=== PATIENT | male | born 1950 | race Caucasian/White ===

== ENCOUNTER 2018-03-18 11:18 | Day surgery (SDC) | payer MEDICARE, OTHER ==
[2018-03-17 14:07] VITALS: BMI 31.3
--- NOTE | 2018-03-18 13:48 | OP ---
DATE OF PROCEDURE: 03/18/2018 PREOPERATIVE DIAGNOSES: 1. Dysphagia. 2. Chronic diarrhea. 3. History of colon polyps. PROCEDURE: After informed consent was obtained, the patient was placed in the left lateral decubitus position. Anesthesia was administered per the Anesthesia Department. Forward-viewing endoscope was inserted into the esophagus under direct visualization with ease and passed to the second portion of the duodenum with ease. Second portion of the duodenum and duodenal bulb were normal. Random biops ies were taken of the second portion of duodenum. The pylorus, antrum, body, fundus, and cardia were normal except for some diffuse nonerosive gastritis. Biopsies were taken from the gastric antrum an d body. Some nodular mucosa was noted in the body of the stomach. The esophagus showed a narrowing at 40 cm. A 54-Khmer Thrasher dilator was passed. The scope was reinserted and showed some post-dil atation bleeding. ASSESSMENT: 1. Esophageal stricture - status post Thrasher dilatation. 2. Nonerosive gastritis - status post biopsy. 3. Otherwise, normal esophagogastroduodenoscopy. RECOMMENDATIONS: 1. Await histopathology. 2. Repeat EGD and dilatations as needed. 3. Proceed with colonoscopy. PROCEDURE: After informed consent was obtained, the patient placed in the left lateral decubitus pos ition. Anesthesia was administered per the Anesthesia Department. Forward-viewing endoscope was ins erted into the rectum after perianal inspection and rectal exam were normal. It was passed to the ce cum with ease. The cecum, ileocecal valve, and appendiceal orifice were normal. The prep was excell ent. In the cecum, a small 6 mm polyp was seen and removed with a hot snare polypectomy. The remain johnny of the cecum, ascending, transverse, descending, sigmoid, and rectum were normal except for some left-sided diverticulosis coli. Random biopsies were taken from the colon to rule out microscopic co litis. Retroflexion in the rectum was normal. ASSESSMENT: 1. Cecal polyp - status post polypectomy. 2. Left-sided diverticulosis coli. 3. Otherwise, normal colonoscopy. RECOMMENDATIONS: 1. Await histopathology. 2. Repeat colonoscopy based on the polypectomy results. 3. Follow up in my office in 1 week's time.
[2018-03-18] MEDS ORDERED: ePHEDrine/0.9% NaCl/PF SYRINGE 50 mg/10 ml ONE (15:07)
[2018-03-18] MEDS ORDERED: Lidocaine 1% PF 5 ML VIAL ONE (15:07)
[2018-03-18] MEDS ORDERED: PROPOFOL 200 MG/20 ML VIAL ONE (15:07)
[2018-03-18] MEDS ORDERED: PHENYLEPHRINE-NS 100 MCG/ML 10 ML SYRINGE ONE (15:07)
== END 2018-03-18 14:16 | disposition home or self-care (01) ==
LOC: SDC 11:18
PROVIDERS: ATTEND Internal Medicine Gastroenterology
PROC: 0DBH8ZX Excision of Cecum, Via Natural or Artificial Opening Endoscopic, Diagnostic (ICD-10-PCS; principal; 2018-03-18)
PROC: 0DBE8ZX Excision of Large Intestine, Via Natural or Artificial Opening Endoscopic, Diagnostic (ICD-10-PCS; 2018-03-18)
PROC: 0D757ZZ Dilation of Esophagus, Via Natural or Artificial Opening (ICD-10-PCS; 2018-03-18)
PROC: 0DB68ZX Excision of Stomach, Via Natural or Artificial Opening Endoscopic, Diagnostic (ICD-10-PCS; 2018-03-18)
DX: K63.5 Polyp of colon (principal); K22.2 Esophageal obstruction; K29.70 Gastritis, unspecified, without bleeding
CPT/HCPCS: 88305; 88312; J2001; J2704

== ENCOUNTER 2018-04-06 18:18 | Inpatient (IN) | payer MEDICARE ==
[2018-04-06 20:05] LABS: Troponin I 0.129 ng/mL (< 0.028)
[2018-04-06] MEDS ORDERED: Ondansetron HCl/PF 4 MG/2 ML Vial IVP PRN (22:33)
[2018-04-06] MEDS ORDERED: Ondansetron ODT 4 MG TAB SL PRN (22:33)
[2018-04-06] MEDS ORDERED: HYDROcodone/Acetaminophen 5/325 mg Tablet PO PRN (22:33)
[2018-04-06] MEDS ORDERED: Acetaminophen 325 MG TAB PO PRN (22:33)
[2018-04-06 22:44] VITALS: BMI 31.8
[2018-04-06] MEDS ORDERED: Vancomycin HCl 1 GM in Premix Bag 1 BAG IVPB SCH (23:00)
[2018-04-06 23:20] LABS: Troponin I 0.119 ng/mL (< 0.028)
[2018-04-06] MEDS ORDERED: VANCOMYCIN IVPB PRN (23:30)
[2018-04-06] MEDS: Cefepime 1 GM in Sodium Chloride 0.9% 100 ML IVPB SCH (23:32)
[2018-04-07] MEDS: HYDROcodone/Acetaminophen 5/325 mg Tablet PO PRN ×3 (00:49→17:17)
[2018-04-07] MEDS ORDERED: Vancomycin HCl 1.75 GM in Sodium Chloride 0.9% 500 ML IVPB SCH (01:00)
[2018-04-07 05:20] LABS: #Basophils 0.1 thou/uL (0.0-0.2); #Eosinphils 0.5 thou/uL (0.0-0.7); %Basophils 0.5 % (0.0-1.0); %Eosinophils 4.2 % (0.0-10.0); %Lymphocytes 25.7 % (21.0-51.0); %Monocytes 8.9 % (0.0-10.0); %Neutrophils 60.7 % (42.0-75.0); Hemoglobin 12.2 g/dL (14.0-18.0); Mean Corpuscular HGB CONC 33.7 g/dL (32.0-36.0); Mean Corpuscular Hemoglobin 30.1 pg (27.0-31.0); Mean Corpuscular Volume 89.3 fL (78.0-98.0); Mean Platelet Volume 7.2 fL (7.4-10.4); Platelet Count 183 thou/uL (130-400); RBC Distribution Width 14.2 % (11.5-14.5); Red Blood Cell (RBC) Count 4.05 mill/uL (4.70-6.10); White Blood Cell (WBC) Count 11.6 thou/uL (4.8-10.8)
[2018-04-07 05:45] LABS: Anion Gap 15 mmol/L (10-20); BUN (Urea Nitrogen) 17 mg/dL (8.4-25.7); Calc. Creatinine Clearance 69 mL/min (70-130); Calcium 8.6 mg/dL (7.8-10.44); Carbon Dioxide 25 mmol/L (23-31); Chloride 104 mmol/L (98-107); Estimated GFR-MDRD 53; Glucose 119 mg/dL (80-115); Potassium 3.8 mmol/L (3.5-5.1); Sodium 140 mmol/L (136-145)
[2018-04-07] MEDS ORDERED: Atorvastatin Calcium 40 MG TAB PO SCH (09:00)
[2018-04-07] MEDS: PARoxetine 20 MG TAB PO SCH (09:01)
[2018-04-07] MEDS: Furosemide 20 MG TAB PO SCH ×2 (09:02→21:33)
[2018-04-07] MEDS: Carvedilol 25 MG TAB PO SCH ×2 (09:02→20:42)
[2018-04-07] MEDS: Enoxaparin Sodium 40 MG/0.4 ML SYRINGE SC SCH (09:03)
--- NOTE | 2018-04-07 09:40 | HP ---
PRIMARY CARE PHYSICIAN: Dr. Maria Fernanda White. CODE STATUS: FULL CODE. TIME OF EVALUATION: 10:15 p.m. CHIEF COMPLAINT: Shortness of breath. HISTORY OF PRESENT ILLNESS: This is a 67-year-old male patient with past medical history of congesti ve heart failure, status post pacemaker, aortic valve replacement in 2003, came to the hospital after having a severe gradually worsening shortness of breath, limiting his activities of daily living. T his symptom has been present for the past 4 days. No clear triggers, no alleviating factors. Sympto ms do get worse with exertion and are associated with fever. REVIEW OF SYSTEMS: Constitutional: The patient had fever, chills, generalized weakness. Respirator y: Cough, sputum production, shortness of breath. Cardiovascular: No chest pain, palpitation. Gas trointestinal: No nausea, vomiting, diarrhea or abdominal pain. TELEPHONE TRIAGE NURSE: No dizziness, headache or fee ling lightheaded. Genitourinary: No burning with urination. Extremities: No leg swelling. All ot her systems reviewed and negative except for the finding mentioned over. PAST MEDICAL HISTORY: Positive for valvular heart disease, aortic stenosis, hypertension. PAST SURGICAL HISTORY: Aortic valve replacement, pacemaker defibrillator, orthopedic surgery left hi p. PSYCHIATRIC HISTORY: None reported. SOCIAL HISTORY: Former tobacco smoker, quit 6 months ago. No drug use, no alcohol use. DRUG ALLERGIES: No known drug allergies. REPORTED MEDICATIONS: Enalapril, Coreg, furosemide, spironolactone, paroxetine, Lipitor. PHYSICAL EXAMINATION: VITAL SIGNS: On presentation, blood pressure 110/67 with heart rate 80, respiratory rate was 18, tem perature 98.1, oxygen saturation was 98% on room air. GENERAL APPEARANCE: The patient is alert, oriented, no acute distress. HEENT: Eyes, normal conjunctivae. Moist oral mucosa. Anicteric. NECK: No JVD. RESPIRATORY: The patient has bilateral air entry. Patient has rales in the right lower lobe with sc attered rhonchi. No wheezing. Symmetric expansion. CARDIOVASCULAR: Normal rate, regular rhythm. No murmurs, no gallop. No edema. ABDOMEN: Soft, normal bowel sounds. MUSCULOSKELETAL: Baseline range of motion and strength. No tenderness. SKIN: Warm and intact. No pallor, no rash or redness. Peripheral pulses are present. Capillary re fill seems to be intact. NEUROLOGIC: No evidence of any new focal weakness. Baseline sensory. Cranial nerves seem to be int act. PSYCHIATRIC: The patient is in good mood. No anxiety. Oriented. Optimal judgement. EKG was reviewed. The patient had paced rhythm was discussed with performing physician from ER. RADIOLOGY: Chest CT, no pulmonary embolism, mild patchy right anterior and posterior basilar infiltr ates. This was reviewed by radiology. LABORATORY DATA: Reviewed. The patient has a troponin of 0.129, second one 0.119. White count 11, hemoglobin 11.8, MCV 87, platelet count 166. Coagulation: D-dimer 1.18. Chemistry: Sodium 141, po tassium 3.8, chloride 106, anion gap 16, BUN 19, creatinine 1.22, GFR 59, glucose 100, hemoglobin A1c 5.5 that was in December. Lactic acid 2.0. LFTs were normal. Beta-natriurectic peptide 688. ASSESSMENT AND PLAN: The patient will be placed in the hospital with following medical problems. 1. Right lower lobe pneumonia seen on the CAT scan, treated with antibiotics, broad spectrum to cove r possible healthcare-associated pneumonia. The patient was admitted to the hospital recently, and s ymptoms are getting worse very quickly. We will monitor the patient. We will follow up cultures, we will adjust the treatment as needed. 2. Elevated D-dimer of 1.18, secondary to underlying infection. CT angio was done, it was negative for pulmonary embolism. 3. History of congestive heart failure. The patient has improvement after giving Lasix prior to tra nsfer, there may be some component of congestive heart failure in this process, we will reconcile enzo e meds, we will adjust treatment as needed. 4. Controlled hypertension, reconcile home meds, will adjust treatment as needed. 5. Deep venous thrombosis prophylaxis.
[2018-04-07] MEDS ORDERED: Aspirin 325 mg Enteric Coated Tablet PO SCH (10:30)
[2018-04-07] MEDS: Azithromycin 250 MG in Sodium Chloride 0.9% 250 ML 250 ML IVPB SCH (12:32)
--- NOTE | 2018-04-07 12:42 | CON ---
DATE OF CONSULTATION: 04/06/2018 HISTORY OF PRESENT ILLNESS: The patient is a 67-year-old gentleman with a history of coronary artery disease and aortic valve replacement who presents with increasing dyspnea, fever and productive sput um. The patient has a history of aortic valve replacement in 2003. He had placement of bioprostheti c valve. The patient has been followed most recently in [place]. He states that he underwent a cardiac catheterization earlier this year, which revealed [id number] CAD and has been on medical thera py. The patient was in his usual state of health until recently he developed a fever. The patient s tated that he became progressively short of breath. He developed productive yellow-tinged sputum. T he patient is also reporting having chest discomfort with increased coughing. The patient reports zeng ving dyspnea at rest. PAST MEDICAL HISTORY: Significant for, 1. Coronary artery disease. 2. Cardiomyopathy. 3. Hypertension. 4. Dyslipidemia. 5. History of aortic valve replacement. 6. History of defibrillator placement. PAST SURGICAL HISTORY: He has had hip replacement and aortic valve replacement. SOCIAL HISTORY: He is a former smoker. ALLERGIES: No known drug allergies. MEDICATIONS: Included Lipitor 80 at bedtime, Coreg 25 b.i.d., enalapril 10 daily, Lasix 20 b.i.d., P axil 40 daily and spironolactone 10 daily. ALLERGIES: No known drug allergies. FAMILY HISTORY: Positive family history of heart disease. REVIEW OF SYSTEMS: Noticeable for 10-point system otherwise unremarkable. PHYSICAL EXAMINATION: GENERAL: This is an obese gentleman, in mild distress. VITAL SIGNS: Blood pressure 129/72. NECK: Full. LUNGS: Have rhonchi, which are primarily on the right lung field and diffuse wheezing. HEART: Regular rate and rhythm, normal S1, S2 and 1/6 systolic murmur. ABDOMEN: Distended. EXTREMITIES: Showed no edema. SKIN: Warm and dry. NEUROLOGIC: Nonfocal. VASCULAR: Radial pulses are 2+. LABORATORY DATA: Sodium 140, potassium 3.8, chloride 104, bicarbonate 25, BUN 17, creatinine is 1.35 , glucose 119. White blood cell count of 11.6, hemoglobin of 12.2, hematocrit of 36.2 and platelets of 183,000. His CT scan revealed evidence of probable right-sided pneumonia. IMPRESSION: 1. Probable pneumonia. 2. History of aortic valve replacement. 3. History of a cardiomyopathy. 4. History of AICD placement. 5. History of coronary artery disease. 6. Hypertension. 7. Obesity. PLAN: This gentleman presents with probable pneumonia. We will ask Pulmonary to evaluate. The sivan ent is being treated with IV antibiotics. We will obtain the records from the patient's [facility] . We will place the patient on aspirin and I have explained the patient the life-threatening consequ ences of him not being compliant with taking this medication. In addition, we will switch the patien t to Crestor since he has been intolerant of Lipitor. We will follow this patient with you. Further recommendations to follow.
--- NOTE | 2018-04-07 13:25 | CON ---
DATE OF CONSULTATION: 04/07/2018 CONSULTING PHYSICIAN: Flex Johnson M.D. The following encompassed 70 minutes time. Of that time, greater than 50% was spent with the patient in his room and/or on the patient unit in the hospital. REASON FOR CONSULTATION: Pneumonia. HISTORY OF PRESENT ILLNESS: This is a 67-year-old male who presented to the [place] emergency [facility] yesterday with a 4-day history of increasing cough, shortness of breath and a subjective fever. He underwent a CT of the chest, which demonstrated mild patchy infiltrate on the right side. He has been started on broad spectrum IV antibiotics and says he feels somewhat better today. He has had no hemoptysis. He has no previous pulmonary history, although he did smoke up until 6 mon ths ago. PAST MEDICAL HISTORY: 1. Valvular heart disease 2. Aortic stenosis. 3. Hypertension. 4. Congestive heart failure. PAST SURGICAL HISTORY: Aortic valve replacement, pacemaker/defibrillator placement, left hip surgery . SOCIAL HISTORY: He smoked a pack per day before quitting 6 months ago. He is a retired resistance welder. He does not consume alcohol. He does not use illicit drugs. ALLERGIES: None. MEDICATIONS PRIOR TO ADMISSION: Enalapril, Coreg, furosemide, spironolactone, paroxetine, Lipitor. REVIEW OF SYSTEMS: Twelve-point review of systems is otherwise negative except that mentioned above. PHYSICAL EXAMINATION: VITAL SIGNS: Temperature 97.8, pulse 86, respirations 18, O2 sat 92% on 2 liters, blood pressure 139 /72. HEENT: Pupils react. Sclerae are icteric. Oropharynx clear. NECK: No adenopathy, JVD or bruits. LUNGS: Coarse rhonchi bilaterally with some crackles in the right base. CARDIOVASCULAR: S1, S2, slightly tachycardic without murmur, rub or gallop. ABDOMEN: Soft, nontender. No hepatosplenomegaly. EXTREMITIES: No clubbing, cyanosis or edema. LABORATORY DATA: White blood cell count 11.6, hematocrit 36, platelet count 183,000 with 60% neutrop hils, 2% bands. Sodium 140, potassium 3.8, chloride 104, CO2 25, BUN 17, creatinine 1.4, glucose 119 . BNP was 688. IMAGING: CT was reviewed, findings are as noted above in history of present illness. ASSESSMENT: 1. Right-sided pneumonia. 2. Possible concurrent congestive heart failure. 3. Likely some degree of underlying chronic obstructive pulmonary disease. RECOMMENDATIONS: 1. Start on azithromycin for atypical coverage. 2. Continue the vancomycin and cefepime as you are doing. If the 48-hour cultures are negative, the n discontinue the vancomycin. 3. Start breathing treatments given the wheezing. If the wheezing does not improve with breathing t reatments, then consider empiric steroids. Thank you for the opportunity to see this patient in consultation.
[2018-04-07] MEDS: Cefepime 1 GM in Sodium Chloride 0.9% 100 ML IVPB SCH (14:18)
--- NOTE | 2018-04-07 18:05 | PDOC.PN ---
- Subjective Encounter Start Date: 04/07/18 Encounter Start Time: 17:50 Subjective: f/u for PNA likely HCAP on Cefepime/Vancomycin/Zithromax. Feels better toda -: some productive cough. + wheezing - Objective Resuscitation Status: Resuscitation Status FULL:Full Resuscitation MAR Reviewed: Yes Vital Signs & Weight: Vital Signs (12 hours) Temp Pulse Resp BP Pulse Ox 04/07/18 16:02 97.7 F 81 18 128/63 93 L 04/07/18 15:24 84 16 04/07/18 12:39 98.1 F 72 18 109/57 L 94 L 04/07/18 12:13 93 L 04/07/18 12:09 83 16 04/07/18 08:00 92 L 04/07/18 07:49 97.8 F 86 18 139/72 89 L Weight Weight 203 lb 5 oz I&O: 04/06/18 04/07/18 04/08/18 06:59 06:59 06:59 Intake Total 1670 Output Total 175 Balance 1495 Result Diagrams: 04/07/18 05:01 04/07/18 05:01 Additional Labs: Laboratory Tests 04/06/18 04/06/18 04/06/18 14:23 14:23 14:23 WBC 11.0 H Creatinine 1.22 Troponin I 0.095 H 04/06/18 04/06/18 19:31 22:40 WBC Creatinine Troponin I 0.129 H 0.119 H Microbiology 04/06/18 14:23 Venous blood - Left Hand Blood Culture - Preliminary Specimen has been received and culture in progress. No Growth to date. 04/06/18 14:18 Venous blood - Left Arm Blood Culture - Preliminary Specimen has been received and culture in progress. No Growth to date. Radiology Reviewed by me: Yes (CTA chest - right basilar infiltrate) EKG Reviewed by me: Yes (Tele - SR) Phys Exam - Physical Examination Constitutional: NAD HEENT: PERRLA, sclera anicteric, oral pharynx no lesions Neck: no nodes, no JVD, supple, full ROM scattered coarse sounds in R base + wheezing bilat Respiratory: no rales S1, S2 Cardiovascular: RRR, no rub, gallop Gastrointestinal: soft, non-tender, no distention, positive bowel sounds Musculoskeletal: no edema, pulses present Neurological: normal sensation, moves all 4 limbs Psychiatric: A&O x 3 Skin: normal turgor, cap refill <2 seconds Dx/Plan (1) Community acquired bacterial pneumonia Code(s): J15.9 - UNSPECIFIED BACTERIAL PNEUMONIA Status: Acute Comment: Suspected gram + organism, continue Cefepime/Vanc/Zithromax, Duonebs, add Prednisone (2) CKD (chronic kidney disease), stage III Code(s): N18.3 - CHRONIC KIDNEY DISEASE, STAGE 3 (MODERATE) Status: Chronic Comment: Avoid nephrotoxic meds and limit contrast exposure (3) HTN (hypertension) Code(s): I10 - ESSENTIAL (PRIMARY) HYPERTENSION Status: Chronic Qualifiers: Hypertension type: essential hypertension Qualified Code(s): I10 - Essential (primary) hypertension Comment: Continue Enalepril and Coreg, serial monitoring (4) CAD (coronary artery disease) Code(s): I25.10 - ATHSCL HEART DISEASE OF [place] CORONARY ARTERY W/O ANG PCTRS Status: Chronic Comment: Continue ASA, Crestor - Plan plan discussed w/ family, continue antibiotics, respiratory therapy, out of bed/ ambulate, DVT proph w/SCDs Stable overall -: Continue Cefepime/Vanc/Zithromax -: Add Prednisone 40mg daily -: Duonebs q4h prn -: AM lab: BMP, CBC * .
[2018-04-07] MEDS ORDERED: predniSONE 20 MG TAB PO SCH (18:30)
[2018-04-07] MEDS: Rosuvastatin 20 MG TAB PO SCH (20:42)
[2018-04-08] MEDS: Cefepime 1 GM in Sodium Chloride 0.9% 100 ML IVPB SCH ×2 (00:40→12:24)
[2018-04-08] MEDS ORDERED: Vancomycin HCl 1.5 GM in Sodium Chloride 0.9% 250 ML 300 ML IVPB SCH (01:00)
[2018-04-08 05:32] LABS: Anion Gap 14 mmol/L (10-20); BUN (Urea Nitrogen) 17 mg/dL (8.4-25.7); Calc. Creatinine Clearance 71 mL/min (70-130); Calcium 8.7 mg/dL (7.8-10.44); Carbon Dioxide 25 mmol/L (23-31); Chloride 106 mmol/L (98-107); Estimated GFR-MDRD 55; Glucose 144 mg/dL (80-115); Potassium 3.8 mmol/L (3.5-5.1); Sodium 141 mmol/L (136-145)
[2018-04-08 06:33] LABS: Band 9 % (5-11); Hemoglobin 11.6 g/dL (14.0-18.0); Lymphocytes 8 % (21-51); MDiff Complete? YES; Mean Corpuscular HGB CONC 31.9 g/dL (32.0-36.0); Mean Corpuscular Hemoglobin 28.6 pg (27.0-31.0); Mean Corpuscular Volume 89.8 fL (78.0-98.0); Mean Platelet Volume 7.3 fL (7.4-10.4); Monocytes 4 % (0-10); Neutrophil 78 % (42-75); Platelet Count 205 thou/uL (130-400); RBC Distribution Width 13.9 % (11.5-14.5); Reactive Lymphocytes 1 % (0-10); Red Blood Cell (RBC) Count 4.05 mill/uL (4.70-6.10); White Blood Cell (WBC) Count 9.3 thou/uL (4.8-10.8)
[2018-04-08] MEDS ORDERED: Spironolactone 25 MG TAB PO SCH ×2 (08:45→09:00)
[2018-04-08] MEDS: Aspirin 325 mg Enteric Coated Tablet PO SCH (09:13)
[2018-04-08] MEDS: Carvedilol 25 MG TAB PO SCH ×2 (09:13→22:05)
[2018-04-08] MEDS: Furosemide 20 MG TAB PO SCH ×2 (09:14→14:44)
[2018-04-08] MEDS: Enoxaparin Sodium 40 MG/0.4 ML SYRINGE SC SCH (09:14)
[2018-04-08] MEDS: predniSONE 20 MG TAB PO SCH (09:14)
[2018-04-08] MEDS: PARoxetine 20 MG TAB PO SCH (09:14)
--- NOTE | 2018-04-08 10:45 | PRG ---
DATE OF SERVICE: 04/08/2018 SUBJECTIVE: The patient says his breathing is better compared to yesterday. PHYSICAL EXAMINATION: VITAL SIGNS: On exam, temperature is 98.4, pulse 99, respirations 16, O2 sat 91% on 2 liters, blood pressure 147/67. HEENT: Unremarkable. NECK: No JVD. LUNGS: Coarse breath sounds bilaterally with wheezing. CARDIOVASCULAR: S1 and S2, regular. ABDOMEN: Soft. EXTREMITIES: No edema. LABORATORY DATA: White blood cell count 9.3, hematocrit 36.3, platelet count 205. Sodium 141, potas sium 3.8, BUN 17, creatinine 1.3, glucose 144. ASSESSMENT: 1. Bronchopneumonia. 2. Reactive airway disease. PLAN: 1. Continue antibiotics. 2. Add low dose steroids. 3. Continue bronchodilators.
[2018-04-08] MEDS: Azithromycin 250 MG in Sodium Chloride 0.9% 250 ML 250 ML IVPB SCH (11:00)
--- NOTE | 2018-04-08 14:21 | PQF ---
CLINICAL DOCUMENTATION IMPROVEMENT CLARIFICATION FORM: ICD-10 Updated PLEASE DO AN ADDENDUM TO THE PROGRESS NOTE WITH ANY DOCUMENTATION UPDATES OR ADDITIONS AND CARRY THROUGH TO DC SUMMARY. THANK YOU. DATE: 04/08/18 ATTN: Dr. Obrien Please exercise your independent, professional judgment in responding to the clarification form. Clinical indicators are provided on the bottom of this form for your review Please check appropriate box(s): HEART FAILURE: A. TYPE: [ ] Systolic / HFrEF [ ] Diastolic / HFpEF [ ] Combined Systolic / Diastolic B. ACUITY [ ] Acute [ ] Acute on Chronic [ X ] Chronic [ ] Other diagnosis [ X ] Unable to determine Awaiting external documents to determine type of CHF In addition, please specify: Present on Admission (POA): [ X ] Yes [ ] No [ ] Unable to determine For continuity of documentation, please document condition throughout progress notes and discharge summary. Thank You. CLINICAL INDICATORS - SIGNS / SYMPTOMS / LABS H&P 04/06: SHORTNESS OF BREATH BNP 688 HX OF CONGESTIVE HEART FAILURE. THE PT HAS IMPROVEMENT AFTER GIVING LASIX PRIOR TO TRANSFER, THERE MAY BE SOME COMPONENT OF CHF IN THIS PROCESS, WILL RECONCILE HOME MEDS, ADJUST TREATMENT NEEDED RISKS: H&P: HX OF CHF, S/P PM; AVR 2003. HTN. PN 04/07: CKD STAGE 3 TREATMENT: CPOE 04/06: COREG 25 MG PO BID CPOE 04/07: LASIX 20 MG PO BID Thank you, Luzma (This form is maintained as a part of the permanent medical record) 2014 [employer]. All Rights Reserved Luzma Brunner RN, BSN [email or web address] Office: [phone] [facility]
--- NOTE | 2018-04-08 17:26 | PDOC.PN ---
- Subjective Encounter Start Date: 04/08/18 Encounter Start Time: 07:00 Pt seen for followup re: bacterial pneumonia. Feels better. Cough better. Shortness of breath better. - Objective Resuscitation Status: Resuscitation Status FULL:Full Resuscitation MAR Reviewed: Yes Vital Signs & Weight: Vital Signs (12 hours) Temp Pulse Resp BP BP Pulse Ox 04/08/18 16:12 97.1 F L 82 18 151/63 H 95 04/08/18 14:10 89 16 93 L 04/08/18 12:30 97.5 F L 96 18 129/60 96 04/08/18 10:12 95 16 95 04/08/18 08:30 93 L 04/08/18 07:42 98.4 F 99 18 147/67 H 91 L 04/08/18 07:02 85 16 97 Weight Weight 203 lb 5 oz I&O: 04/07/18 04/08/18 04/09/18 06:59 06:59 06:59 Intake Total 1670 500 Output Total 175 125 Balance 1495 375 Result Diagrams: 04/08/18 04:42 04/08/18 04:42 EKG Reviewed by me: Yes (Tele: A-sensed V-paced) Phys Exam - Physical Examination Obese HEENT: moist MMs Neck: supple Respiratory: wheezing present Cardiovascular: RRR Gastrointestinal: soft Neurological: moves all 4 limbs Psychiatric: normal affect Dx/Plan (1) Community acquired bacterial pneumonia Code(s): J15.9 - UNSPECIFIED BACTERIAL PNEUMONIA Status: Acute Comment: continue Cefepime/Zithromax, Duonebs, Prednisone. Discontinue vancomycin. (2) CAD (coronary artery disease) Code(s): I25.10 - ATHSCL HEART DISEASE OF [place] CORONARY ARTERY W/O ANG PCTRS Status: Chronic Comment: stable, on ASA, Crestor (3) CKD (chronic kidney disease), stage III Code(s): N18.3 - CHRONIC KIDNEY DISEASE, STAGE 3 (MODERATE) Status: Chronic Comment: stable (4) HTN (hypertension) Code(s): I10 - ESSENTIAL (PRIMARY) HYPERTENSION Status: Chronic Qualifiers: Hypertension type: essential hypertension Qualified Code(s): I10 - Essential (primary) hypertension Comment: Continue Enalepril and Coreg, serial monitoring - Plan * . Review of Systems - Review of Systems Respiratory: Cough, Shortness of Breath, Sputum, Wheezing. negative: Dry, Hemoptysis, SOB with Excertion, Pleuritic Pain Cardiovascular: negative: chest pain, palpitations, orthopnea, paroxysmal nocturnal dyspnea, edema, light headedness - Medications/Allergies Allergies/Adverse Reactions: Allergies Allergy/AdvReac Type Severity Reaction Status Date / Time No Known Allergies Allergy Verified 04/06/18 22:50 Medications: Current Medications Acetaminophen (Tylenol) 650 mg PO Q4H PRN PRN Reason: Headache/Fever or Pain Stop: 04/11/18 09:00 Last Admin: 04/07/18 05:34 Dose: 650 mg Hydrocodone Bitart/Acetaminophen ([place] 5/325) 1 tab PO Q6H PRN PRN Reason: Mild-Moderate Pain (1-5) Stop: 04/11/18 09:00 Last Admin: 04/07/18 17:17 Dose: 1 tab Albuterol/Ipratropium (Duoneb) 3 ml NEB [id number] SCH Last Admin: 04/08/18 14:10 Dose: 3 ml Aspirin (Ecotrin) 325 mg PO DAILY [facility] Last Admin: 04/08/18 09:13 Dose: 325 mg Carvedilol (Coreg) 25 mg PO BID [facility] Last Admin: 04/08/18 09:13 Dose: 25 mg Enalapril Maleate (Vasotec) 10 mg PO BID [facility] Last Admin: 04/08/18 09:14 Dose: 10 mg Enoxaparin Sodium (Lovenox) 40 mg SC 0900 [facility] Last Admin: 04/08/18 09:14 Dose: 40 mg Furosemide (Lasix) 20 mg PO 0900,1400 [facility] Last Admin: 04/08/18 14:44 Dose: 20 mg Cefepime HCl 1 gm/ Sodium (Chloride) 100 mls @ 200 mls/hr IVPB 1200,2359 [facility] Last Admin: 04/08/18 12:24 Dose: 100 mls Vancomycin HCl 1.5 gm/ Sodium (Chloride) 300 mls @ 200 mls/hr IVPB 0100 [facility] Last Admin: 04/08/18 01:50 Dose: 300 mls Azithromycin 250 mg/ Sodium (Chloride) 250 mls @ 250 mls/hr IVPB Q24HR [facility] Last Admin: 04/08/18 11:00 Dose: 250 mls Miscellaneous Medication (Pharmacy To Dose) 1 each IVPB PRN PRN PRN Reason: PNA Ondansetron HCl (Zofran Odt) 4 mg SL Q6H PRN PRN Reason: Nausea/Vomiting Stop: 04/11/18 09:00 Paroxetine HCl (Paxil) 40 mg PO DAILY [facility] Last Admin: 04/08/18 09:14 Dose: 40 mg Prednisone (Prednisone) 40 mg PO QA-[facility] Last Admin: 04/08/18 09:14 Dose: 40 mg Rosuvastatin Calcium (Crestor) 20 mg PO HS [facility] Last Admin: 04/07/18 20:42 Dose: 20 mg Sodium Chloride (Flush - Normal Saline) 10 ml IVF Q12HR [facility] Last Admin: 04/08/18 09:15 Dose: 10 ml Sodium Chloride (Flush - Normal Saline) 10 ml IVF PRN PRN PRN Reason: Saline Flush Spironolactone (Aldactone) 12.5 mg PO QAM-[facility]
[2018-04-08] MEDS: Rosuvastatin 20 MG TAB PO SCH (22:05)
[2018-04-09 00:30] LABS: Vancomycin, Trough 7.7 ug/mL
[2018-04-09] MEDS: Cefepime 1 GM in Sodium Chloride 0.9% 100 ML IVPB SCH (00:39)
--- NOTE | 2018-04-09 08:58 | PRG ---
DATE OF SERVICE: 04/09/2018 SUBJECTIVE: The patient is doing reasonably well. He has not ambulated much. PHYSICAL EXAMINATION: VITAL SIGNS: Temperature 98.9, pulse 84, respiration rate 16, O2 sat 95% on room air, blood pressure 134/68. HEENT: Unremarkable. NECK: No JVD. LUNGS: Lungs with diffuse bilateral wheezing that is somewhat better than yesterday. CARDIAC: S1 and S2 regular. ABDOMEN: Soft. EXTREMITIES: No edema. LABORATORY DATA: No new labs were done today. Cultures show no growth to date. ASSESSMENT: 1. Bronchopneumonia. 2. Chronic diastolic dysfunction. PLAN: 1. Go ahead and stop the IV antibiotics and transition to oral antibiotics. 2. Continue oral steroids. 3. Would anticipate discharge by tomorrow.
[2018-04-09] MEDS: Carvedilol 25 MG TAB PO SCH ×2 (09:18→20:49)
[2018-04-09] MEDS: Cefdinir 300 MG CAP PO SCH (09:19)
[2018-04-09] MEDS: Aspirin 325 mg Enteric Coated Tablet PO SCH (09:19)
[2018-04-09] MEDS: Spironolactone 25 MG TAB PO SCH (09:19)
[2018-04-09] MEDS: predniSONE 20 MG TAB PO SCH (09:20)
[2018-04-09] MEDS: PARoxetine 20 MG TAB PO SCH (09:21)
[2018-04-09] MEDS: Azithromycin 250 MG TAB PO SCH (09:21)
[2018-04-09] MEDS: Furosemide 20 MG TAB PO SCH ×2 (09:22→15:26)
[2018-04-09] MEDS: Enoxaparin Sodium 40 MG/0.4 ML SYRINGE SC SCH (09:30)
--- NOTE | 2018-04-09 15:20 | PDOC.PN ---
- Subjective Encounter Start Date: 04/09/18 Encounter Start Time: 08:00 Pt seen for followup re: pneumonia. Feels better. Coughing less, minimal amount sputum. - Objective Resuscitation Status: Resuscitation Status FULL:Full Resuscitation MAR Reviewed: Yes Vital Signs & Weight: Vital Signs (12 hours) Temp Pulse Resp BP BP BP Pulse Ox 04/09/18 13:46 89 16 96 04/09/18 12:00 96 F L 79 18 116/61 96 04/09/18 09:21 134/68 04/09/18 08:00 98.9 F 84 16 134/68 100 04/09/18 07:08 90 16 95 04/09/18 04:00 97.7 F 82 20 125/58 L 93 L Weight Weight 204 lb I&O: 04/08/18 04/09/18 04/10/18 06:59 06:59 06:59 Intake Total 500 880 Output Total 125 960 Balance 375 -80 Result Diagrams: 04/10/18 04:49 04/10/18 04:49 EKG Reviewed by me: Yes (Tele: A-paced) Phys Exam - Physical Examination Obese HEENT: moist MMs Neck: supple Respiratory: clear to auscultation bilateral Cardiovascular: RRR Gastrointestinal: soft Neurological: moves all 4 limbs Psychiatric: normal affect Dx/Plan (1) Community acquired bacterial pneumonia Code(s): J15.9 - UNSPECIFIED BACTERIAL PNEUMONIA Status: Acute Comment: Change to oral antibiotics. Continue steroids (2) CAD (coronary artery disease) Code(s): I25.10 - ATHSCL HEART DISEASE OF [place] CORONARY ARTERY W/O ANG PCTRS Status: Chronic Comment: continue aspirin and Crestor (3) CKD (chronic kidney disease), stage III Code(s): N18.3 - CHRONIC KIDNEY DISEASE, STAGE 3 (MODERATE) Status: Chronic Comment: stable (4) HTN (hypertension) Code(s): I10 - ESSENTIAL (PRIMARY) HYPERTENSION Status: Chronic Qualifiers: Hypertension type: essential hypertension Qualified Code(s): I10 - Essential (primary) hypertension Comment: controlled - Plan * . Review of Systems - Review of Systems Respiratory: Cough. negative: Dry, Shortness of Breath, Hemoptysis, SOB with Excertion, Pleuritic Pain, Sputum, Wheezing Cardiovascular: negative: chest pain, palpitations, orthopnea, paroxysmal nocturnal dyspnea, edema, light headedness - Medications/Allergies Allergies/Adverse Reactions: Allergies Allergy/AdvReac Type Severity Reaction Status Date / Time No Known Allergies Allergy Verified 04/06/18 22:50 Medications: Current Medications Acetaminophen (Tylenol) 650 mg PO Q4H PRN PRN Reason: Headache/Fever or Pain Stop: 04/11/18 09:00 Last Admin: 04/07/18 05:34 Dose: 650 mg Hydrocodone Bitart/Acetaminophen ([place] 5/325) 1 tab PO Q6H PRN PRN Reason: Mild-Moderate Pain (1-5) Stop: 04/11/18 09:00 Last Admin: 04/07/18 17:17 Dose: 1 tab Albuterol/Ipratropium (Duoneb) 3 ml NEB [id number] [facility] Last Admin: 04/09/18 13:46 Dose: 3 ml Aspirin (Ecotrin) 325 mg PO DAILY [facility] Last Admin: 04/09/18 09:19 Dose: 325 mg Azithromycin (Zithromax) 250 mg PO DAILY [facility] Stop: 04/12/18 09:01 Last Admin: 04/09/18 09:21 Dose: 250 mg Carvedilol (Coreg) 25 mg PO BID [facility] Last Admin: 04/09/18 09:18 Dose: 25 mg Cefdinir (Omnicef) 600 mg PO DAILY [facility] Last Admin: 04/09/18 09:19 Dose: 600 mg Enalapril Maleate (Vasotec) 10 mg PO BID [facility] Last Admin: 04/09/18 09:21 Dose: 10 mg Enoxaparin Sodium (Lovenox) 40 mg SC 0900 [facility] Last Admin: 04/09/18 09:30 Dose: 40 mg Furosemide (Lasix) 20 mg PO 0900,1400 [facility] Last Admin: 04/09/18 09:22 Dose: 20 mg Miscellaneous Medication (Pharmacy To Dose) 1 each IVPB PRN PRN PRN Reason: PNA Ondansetron HCl (Zofran Odt) 4 mg SL Q6H PRN PRN Reason: Nausea/Vomiting Stop: 04/11/18 09:00 Paroxetine HCl (Paxil) 40 mg PO DAILY [facility] Last Admin: 04/09/18 09:21 Dose: 40 mg Prednisone (Prednisone) 40 mg PO QAM-[facility] Last Admin: 04/09/18 09:20 Dose: 40 mg Rosuvastatin Calcium (Crestor) 20 mg PO HS [facility] Last Admin: 04/08/18 22:05 Dose: 20 mg Sodium Chloride (Flush - Normal Saline) 10 ml IVF Q12HR [facility] Last Admin: 04/09/18 09:23 Dose: 10 ml Sodium Chloride (Flush - Normal Saline) 10 ml IVF PRN PRN PRN Reason: Saline Flush Spironolactone (Aldactone) 12.5 mg PO QAM-WM [facility] Last Admin: 04/09/18 09:19 Dose: 12.5 mg
[2018-04-09] MEDS: Rosuvastatin 20 MG TAB PO SCH (20:48)
[2018-04-10 05:14] LABS: #Basophils 0.1 thou/uL (0.0-0.2); #Eosinphils 0.2 thou/uL (0.0-0.7); #Lymphocytes 3.5 thou/uL (1.20-3.40); #Monocytes 1.3 thou/uL (0.11-0.59); #Neutrophils 12.9 thou/uL (1.40-6.50); %Basophils 0.6 % (0.0-1.0); %Eosinophils 1.1 % (0.0-10.0); %Lymphocytes 19.7 % (21.0-51.0); %Neutrophils 71.7 % (42.0-75.0); Hemoglobin 11.2 g/dL (14.0-18.0); Mean Corpuscular HGB CONC 31.8 g/dL (32.0-36.0); Mean Corpuscular Hemoglobin 28.7 pg (27.0-31.0); Mean Corpuscular Volume 90.3 fL (78.0-98.0); Platelet Count 299 thou/uL (130-400); Red Blood Cell (RBC) Count 3.91 mill/uL (4.70-6.10)
[2018-04-10 05:29] LABS: Anion Gap 13 mmol/L (10-20); BUN (Urea Nitrogen) 23 mg/dL (8.4-25.7); Calc. Creatinine Clearance 73 mL/min (70-130); Calcium 8.5 mg/dL (7.8-10.44); Carbon Dioxide 23 mmol/L (23-31); Chloride 108 mmol/L (98-107); Estimated GFR-MDRD 56; Glucose 98 mg/dL (80-115); Potassium 3.6 mmol/L (3.5-5.1); Sodium 140 mmol/L (136-145)
[2018-04-10] MEDS: Enoxaparin Sodium 40 MG/0.4 ML SYRINGE SC SCH (08:42)
[2018-04-10] MEDS: Spironolactone 25 MG TAB PO SCH (08:43)
[2018-04-10] MEDS: Azithromycin 250 MG TAB PO SCH (08:43)
[2018-04-10] MEDS: Cefdinir 300 MG CAP PO SCH (08:43)
[2018-04-10] MEDS: predniSONE 20 MG TAB PO SCH (08:44)
[2018-04-10] MEDS: Aspirin 325 mg Enteric Coated Tablet PO SCH (08:44)
[2018-04-10] MEDS: PARoxetine 20 MG TAB PO SCH (08:44)
[2018-04-10] MEDS: Carvedilol 25 MG TAB PO SCH (08:45)
[2018-04-10] MEDS: Furosemide 20 MG TAB PO SCH ×2 (08:45→13:21)
--- NOTE | 2018-04-10 08:47 | PRG ---
DATE OF SERVICE: 04/10/2018 The patient is doing well, had no acute complaints. He wants to go home. OBJECTIVE: VITAL SIGNS: Temperature 97.9, pulse 91, blood pressure 130/69, O2 sat 93% on 2 liters. HEENT: Unremarkable. NECK: No JVD. LUNGS: A few expiratory wheezing, but overall this is better than yesterday. CARDIAC: S1 and S2 regular. ABDOMEN: Soft. EXTREMITIES: No edema. LABORATORY DATA: White blood cell count 18, hematocrit 35, platelet count 299. Sodium 140, potassiu m 3.6, chloride 108, CO2 23, BUN 23, creatinine 1.2, glucose 98. ASSESSMENT: 1. Bronchopneumonia. 2. Chronic diastolic dysfunction. PLAN: I have put in prescriptions for Omnicef, Zithromax, prednisone, and ProAir in the computerized prescriptions portion of the chart. He is ready to go home. He needs to see me in the office in 2- 3 weeks. Please recall if further assistance needed.
[2018-04-10 13:35] VITALS: BP 127/67; TEMP 97.2
--- NOTE | 2018-04-10 13:49 | DIS ---
DATE OF ADMISSION: 04/06/2018 DATE OF DISCHARGE: 04/10/2018 PRIMARY CARE PROVIDER: Dr. Maria Fernanda White. DISCHARGE DIAGNOSES: 1. Right lower lobe pneumonia. 2. Chronic congestive heart failure, systolic 3. Acute kidney injury. CONDITION OF PATIENT ON THE DAY OF DISCHARGE: Stable. I assessed Mr. Boyd on the day of discharge. He denies any chest pain or shortness of breath. PHYSICAL EXAMINATION: VITAL SIGNS: Stable. HEART: S1 and S2 are heard, regular. LUNGS: Clear to auscultation bilaterally. CONSULTATIONS DURING THIS HOSPITALIZATION: Cardiology, Dr. Flex Johnson and Pulmonology, Dr. Medhat Schmidt. DISCHARGE MEDICATIONS: Coreg 25 mg 2 times a day, Lasix 20 mg 2 times a day, paroxetine 40 mg daily, ProAir HFA 2 puffs every 6 hours, aspirin 325 mg daily, azithromycin 250 mg daily, 3 more days, Omnicef 600 mg daily, 7 more days, Vasotec 10 mg 2 times a day, prednisone 20 mg for 7 days, then 10 mg daily for 7 days, Crestor 20 mg at bedtime, spironolactone 12.5 mg daily. Please note that Vasotec dose has been increased. Lipitor has been discontinued secondary to diarrhea and patient has been started on Crestor during this hospitalization. HOSPITAL COURSE: Mr. Boyd is a pleasant 67-year-old gentleman who was admitted to [facility] on 04/06/2018 for right lower lobe pneumonia. He was seen by Cardiology and Pulmonology Services. He improved with oxygen, steroids, antibiotics and bronchodilators. He is being discharged home in a stable condition. On the day of discharge, he has white count of 18,000, hemoglobin 11.2, platelet count 299,000. Sodium 140, potassium 3.6, and creatinine 1.28. He had acute renal insufficiency with creatinine of 1.35 on 04/07/2018 Many thanks for allowing me to participate in your patient's care. Please feel free to contact me with any questions or concerns. DISCHARGE DESTINATION: Home. TOTAL AMOUNT OF TIME SPENT COORDINATING THIS DISCHARGE: 32 minutes. CATHY
== END 2018-04-10 15:30 | disposition home or self-care (01) | DRG 194 ==
LOC: ERS 18:18 → 2NO 20:37
PROVIDERS: ADMIT Hospitalist; ATTEND Hospitalist
DX: J18.0 Bronchopneumonia, unspecified organism (principal); I13.0 Hypertensive heart and chronic kidney disease with heart failure and stage 1 through stage 4 chronic kidney disease, or unspecified chronic kidney disease; I50.22 Chronic systolic (congestive) heart failure; N17.9 Acute kidney failure, unspecified; I42.9 Cardiomyopathy, unspecified; N18.3 Chronic kidney disease, stage 3 (moderate); Z95.2 Presence of prosthetic heart valve; I10 Essential (primary) hypertension; Z87.891 Personal history of nicotine dependence; Z79.899 Other long term (current) drug therapy; Z95.810 Presence of automatic (implantable) cardiac defibrillator; I25.10 Atherosclerotic heart disease of native coronary artery without angina pectoris
CPT/HCPCS: 36415; 80048; 80202; 85007; 85025; 85027; 93005; 94640; 99285; J0456; J0692; J1650; J3370; J7050; J7506; J7620; Q0162

== ENCOUNTER 2018-10-02 02:03 | Inpatient (IN) | payer MEDICARE ==
[2018-10-02 02:34] LABS: #Basophils 0.1 thou/uL (0.0-0.2); #Eosinphils 0.2 thou/uL (0.0-0.7); #Lymphocytes 1.8 thou/uL (1.20-3.40); #Monocytes 1.3 thou/uL (0.11-0.59); #Neutrophils 14.8 thou/uL (1.40-6.50); %Basophils 0.5 % (0.0-1.0); %Eosinophils 1.2 % (0.0-10.0); %Lymphocytes 9.8 % (21.0-51.0); %Monocytes 7.1 % (0.0-10.0); %Neutrophils 81.4 % (42.0-75.0); Hemoglobin 13.1 g/dL (14.0-18.0); Mean Corpuscular HGB CONC 33.1 g/dL (32.0-36.0); Mean Corpuscular Hemoglobin 29.2 pg (27.0-31.0); Mean Corpuscular Volume 88.3 fL (78.0-98.0); Mean Platelet Volume 8.3 fL (7.4-10.4); Platelet Count 160 thou/uL (130-400); RBC Distribution Width 16.3 % (11.5-14.5); Red Blood Cell (RBC) Count 4.48 mill/uL (4.70-6.10); White Blood Cell (WBC) Count 18.2 thou/uL (4.8-10.8)
[2018-10-02 02:55] LABS: ALT (SGPT) 26 U/L (8-55); AST (SGOT) 16 U/L (5-34); Albumin 4.1 g/dL (3.4-4.8); Alkaline Phosphatase 106 U/L (40-150); Anion Gap 15 mmol/L (10-20); BUN (Urea Nitrogen) 19 mg/dL (8.4-25.7); Bilirubin, Total 0.9 mg/dL (0.2-1.2); CK (CPK) 174 U/L (30-200); Calc. Creatinine Clearance 0 mL/min (70-130); Calcium 9.1 mg/dL (7.8-10.44); Carbon Dioxide 21 mmol/L (23-31); Chloride 106 mmol/L (98-107); Estimated GFR-MDRD 53; Globulin 3.2 g/dL (2.4-3.5); Glucose 117 mg/dL (80-115); Potassium 4.2 mmol/L (3.5-5.1); Protein, Total 7.3 g/dL (5.8-8.1); Sodium 138 mmol/L (136-145)
[2018-10-02] MEDS ORDERED: Azithromycin 500 MG VIAL ONE (02:58)
[2018-10-02] MEDS ORDERED: cefTRIAXone\\ROCEPHIN 2 GM VIAL ONE (02:58)
[2018-10-02 03:08] LABS: Bilirubin Negative (Negative); Blood, Urine Negative (Negative); Clarity CLEAR (Clear); Glucose, Urine (Dipstick) Negative (Negative); Leukocyte Negative (Negative); Nitrite Negative (Negative); Protein, Urine (Dipstick) Trace mg/dL (Neg-Trace); Urobilinogen 0.2 mg/dL (0.2-1.0)
[2018-10-02 03:18] LABS: CKMB 4.2 ng/mL (0-6.6)
[2018-10-02] MEDS ORDERED: Ondansetron PF 4 MG/2 ML Vial ONE (04:01)
[2018-10-02] MEDS ORDERED: Ondansetron ODT 4 MG TAB SL PRN (04:06)
[2018-10-02] MEDS ORDERED: Ondansetron PF 4 MG/2 ML Vial IVP PRN (04:06)
[2018-10-02] MEDS ORDERED: Sodium Chloride 0.9% 1,000 ML IV SCH (04:06)
[2018-10-02] MEDS ORDERED: Aspirin Chewable 81 MG TAB ONE (04:10)
[2018-10-02] MEDS ORDERED: Acetaminophen 325 MG TAB PO PRN (05:44)
[2018-10-02 05:55] LABS: Troponin I 0.063 ng/mL (< 0.028)
[2018-10-02 06:21] LABS: #Basophils 0.1 thou/uL (0.0-0.2); #Eosinphils 0.1 thou/uL (0.0-0.7); #Lymphocytes 1.8 thou/uL (1.20-3.40); #Monocytes 1.3 thou/uL (0.11-0.59); #Neutrophils 12.9 thou/uL (1.40-6.50); %Basophils 0.4 % (0.0-1.0); %Eosinophils 0.6 % (0.0-10.0); %Lymphocytes 11.3 % (21.0-51.0); %Monocytes 8.2 % (0.0-10.0); %Neutrophils 79.5 % (42.0-75.0); Hemoglobin 12.2 g/dL (14.0-18.0); Mean Corpuscular HGB CONC 33.2 g/dL (32.0-36.0); Mean Corpuscular Hemoglobin 29.8 pg (27.0-31.0); Mean Corpuscular Volume 89.8 fL (78.0-98.0); Mean Platelet Volume 7.9 fL (7.4-10.4); Platelet Count 146 thou/uL (130-400); RBC Distribution Width 16.2 % (11.5-14.5); Red Blood Cell (RBC) Count 4.11 mill/uL (4.70-6.10); White Blood Cell (WBC) Count 16.2 thou/uL (4.8-10.8)
[2018-10-02 06:26] LABS: Lactic Acid 3.2 mmol/L (0.5-2.2)
[2018-10-02 06:29] LABS: Anion Gap 15 mmol/L (10-20); BUN (Urea Nitrogen) 17 mg/dL (8.4-25.7); Calc. Creatinine Clearance 0 mL/min (70-130); Calcium 8.7 mg/dL (7.8-10.44); Carbon Dioxide 22 mmol/L (23-31); Chloride 105 mmol/L (98-107); Estimated GFR-MDRD 53; Glucose 122 mg/dL (80-115); Potassium 4.8 mmol/L (3.5-5.1); Sodium 137 mmol/L (136-145)
--- NOTE | 2018-10-02 07:19 | HP ---
CHIEF COMPLAINT: Shortness of breath. HISTORY OF PRESENT ILLNESS: This patient is a 68-year-old male, who was admitted here back in March with what appeared to be a right lower lobe pneumonia. At that time, his chest x-ray showed some evidence of infiltrate, but his CT scan showed some modest patchiness in the anterior and posterior lower lobe on the right side. The patient reports that, after that admission, he quit smoking after having smoked a pack to pack and a half of cigarettes per day for many years. He states that he was doing reasonably well, although he does occasionally get some dyspnea on exertion until the day of admission here. He reports that he has started developing some upper respiratory symptoms with sinus congestion and some drainage. He stated when he was breathing through his nose, it was making a rumbling type noise. He then progressively became more short of breath to the point he felt that he had to come to the emergency department. He denies any significant fevers or chills. Denies chest pains. He does admit to occasionally having some choking episodes when he is eating, but it does not happen regularly. He does have a history of some esophageal stricture requiring dilatation. REVIEW OF SYSTEMS: All other systems reviewed and all pertinent positives and negatives noted in the history of present illness. PAST MEDICAL HISTORY: History of aortic stenosis, hypertension, cardiomyopathy with history of congestive heart failure, history of coronary artery disease, dyslipidemia, and hypertension. PAST SURGICAL HISTORY: The patient has a bioprosthetic aortic valve replacement, hip replacement, and a right-sided pacemaker defibrillator placed. FAMILY HISTORY: Noncontributory to current admission. SOCIAL HISTORY: The patient is a former smoker, who smoked a pack to a pack and a half of cigarettes per day for many years. Denies alcohol or drugs. He has been for close to 50 years. He is a full code and his is his surrogate decision maker should that become necessary. ALLERGIES: NONE. CURRENT MEDICATIONS: 1. Enalapril 2.5 mg daily. 2. Coreg 25 mg b.i.d. 3. Lasix 20 mg b.i.d. 4. Aldactone 25 mg daily. 5. Paroxetine 40 mg daily. 6. Aspirin 325 daily. 7. Crestor 10 mg at bedtime. PHYSICAL EXAMINATION: VITAL SIGNS: Blood pressure 114/86, pulse 96, respirations 22, and O2 sat 94% on 2 L nasal cannula. GENERAL APPEARANCE: Age-appropriate male, in no distress. He is awake, alert, oriented, pleasant, and cooperative. HEENT: PERRL. He has no OP lesions. No significant nasal mucosal findings. NECK: Supple and symmetric. HEART: Regular rate and rhythm without a significant murmur noted. LUNGS: Noted to have scattered rales throughout, slightly worse at the right base. He has slightly diminished breath sounds throughout. ABDOMEN: Soft, nontender, and nondistended. Positive bowel sounds. No masses. No organomegaly. EXTREMITIES: Warm and dry with no cyanosis, clubbing, or edema. NEUROLOGIC: The patient is grossly intact with no focal deficits. LABORATORY DATA: White count 18.2, hemoglobin 13.1, and platelets 116. Sodium 138, potassium 4.2, chloride 106, CO2 is 21, BUN 19, creatinine 1.33, glucose 177, lactic acid 2.1, calcium 9.1, AST 16, ALT 26, and alkaline phosphatase 106. Troponin 0.069 and subsequent 0.063. BNP 840. Flu screen is negative. IMAGING DATA: Chest x-ray potentially shows some right lower lobe infiltrate, although he has the right-sided pacemaker defibrillator slightly interfering in comparison to his previous x-rays. It looks somewhat consistent with his prior right lower lobe pneumonia, although frankly it is not overly impressive. IMPRESSION AND PLAN: 1. Right lower lobe pneumonia. He has received Rocephin and azithromycin. Await formal read of the chest x-ray. Continue supplemental oxygen as needed. 2. Likely chronic obstructive pulmonary disease, based on his exam, his extensive smoking history and my review of his previous CT appears to have some chronic obstructive pulmonary disease evidence. We will continue DuoNeb. We will hold off on steroids for right now, although he may need some inhaled steroids and long-acting beta-agonist. 3. Mild congestive heart failure. Do not see significant evidence of pulmonary edema on his chest x-ray. His BNP is elevated. He does have some history of cardiomyopathy. He has not primarily been receiving his cardiac care here, but in [place] and then in [place], we will go ahead and obtain an echocardiogram. He does have very minimal elevations of his troponins as well. 4. Elevated troponins. The patient has previous admissions back in March. He actually had troponins that were higher than they are now. I do not suspect these represent acute type 1 ischemia, but more likely type 2 demand ischemia. I do not anticipate further workup unless there is something of note on the echo. 5. History of bioprosthetic aortic valve. The patient reports that he is in need of a new valve replacement and had questions regarding the potential to transcatheter aortic valve replacement. 6. Renal. The patient has stage 3 chronic kidney disease and his current creatinine is consistent with his previous numbers. 7. Hypertension. Continue with enalapril and Coreg. 8. Hyperlipidemia. Continue Crestor. Job ID: [id number]
--- NOTE | 2018-10-02 07:56 | RAD ---
RADIOGRAPH CHEST 1 VIEW: Date: 10/02/18 Time: 0216 hours HISTORY: 68-year-old male with acute pneumonia. COMPARISON: 04/21/18. FINDINGS: Again noted is right subclavian multilead AICD. Sternotomy wires. No pulmonary edema. Left lung is re latively clear. No pneumothorax. Left lateral costophrenic angle is sharp. There is a slightly greate r degree of blunting of the right lateral costophrenic angle now compared to prior. Nonspecific mild nodular interstitial pattern at right lower lung zone, similar to prior study. No gross consolidation . IMPRESSION: 1. Interval slight increase in volume of small right pleural effusion. 2. 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 3. No definite evidence of pneumonia. 4. Recommend continued follow-up. OUMOU [] POS: JESSICA
[2018-10-02] MEDS ORDERED: Carvedilol 25 MG TAB PO SCH (08:00)
[2018-10-02 09:09] LABS: Troponin I 0.078 ng/mL (< 0.028)
[2018-10-02] MEDS ORDERED: Aspirin 325 MG TAB ONE (10:37)
[2018-10-02] MEDS ORDERED: Enoxaparin Sodium 40 MG/0.4 ML SYRINGE ONE (10:37)
[2018-10-02] MEDS ORDERED: Furosemide 40 MG/4 ML VIAL ONE (10:41)
[2018-10-02] MEDS: Aspirin 325 mg Enteric Coated Tablet PO SCH (10:50)
[2018-10-02] MEDS: Enoxaparin Sodium 40 MG/0.4 ML SYRINGE SC SCH (10:52)
[2018-10-02] MEDS ORDERED: Furosemide 40 MG/4 ML VIAL SLOW IVP SCH (11:15)
[2018-10-02] MEDS: Spironolactone 25 MG TAB PO SCH (11:30)
[2018-10-02] MEDS: Furosemide 20 MG TAB PO SCH ×2 (14:45→16:14)
[2018-10-02 15:32] VITALS: BMI 33.2
[2018-10-02] MEDS: PARoxetine 20 MG TAB PO SCH (16:17)
[2018-10-02] MEDS: Carvedilol 25 MG TAB PO SCH (17:41)
--- NOTE | 2018-10-02 20:10 | PRG ---
DATE OF SERVICE: 10/02/2018 SUBJECTIVE: Mr. Boyd is a pleasant 68-year-old male with past medical history significant for previous right lower lobe pneumonia in March of 2018, chronic systolic congestive heart failure with EF of 45%, status post bioprosthetic aortic valve replacement, and COPD, who presented to the hospital with complaints of shortness of breath and nonproductive cough. The patient has been admitted with acute CHF exacerbation and right lower lobe community-acquired pneumonia. The patient was seen this morning in the ER and did appear to be short of breath. He improved greatly with 40 mg of IV Lasix. He states he feels much better at this time, although continues to complain of cough and shortness of breath. He does feel as if he might be running a fever. He denies nausea and vomiting. OBJECTIVE: VITAL SIGNS: Blood pressure 102/60, O2 saturation is 94% on 3 L nasal cannula, pulse 78, and temperature 99.1. GENERAL: The patient is a male, who appears his stated age, in no acute distress. HEENT: Head is atraumatic and normocephalic. Mucous membranes are moist. NECK: No appreciable JVD. No lymphadenopathy. No carotid bruits. CV: S1 and S2. No appreciable murmurs, rubs, or gallops. LUNGS: Regular respiratory rate and pattern, overall decreased vesicular breath sounds, positive bibasilar crackles. ABDOMEN: Positive bowel sounds. Soft and nontender. SKIN: Warm and dry. No appreciable rashes or discolorations. EXTREMITIES: I can appreciate no edema. +2 DP pulses bilaterally. NEUROLOGIC: Cranial nerves 2 through 12 intact. The patient is nonfocal. LABORATORY DATA: White blood cell count 16.2, down from 18.2; hemoglobin 12.2; hematocrit 36.9; platelets 146. Sodium 137, potassium 4.8, BUN 17, creatinine 1.34, and glucose 122. Troponin indeterminate at 0.069, 0.063, and 0.078 respectively. BNP is 840. ASSESSMENT: 1. Shortness of breath, multifactorial in the setting of newly diagnosed community-acquired pneumonia, acute systolic congestive heart failure exacerbation, and chronic obstructive pulmonary disease. 2. Acute systolic congestive heart failure exacerbation. Last ejection fraction per the patient was 45%. BNP was 840 on arrival. 3. Community-acquired pneumonia, on intravenous azithromycin and Rocephin. 4. Chronic obstructive pulmonary disease. 5. Status post bioprosthetic aortic valve replacement. 6. Chronic renal insufficiency, creatinine 1.34, possibly secondary to cardiorenal syndrome. PLAN: We will continue breathing treatments and IV antibiotics for the patient's pneumonia. We will continue diuresis as kidney function permits and watch electrolytes closely. Echocardiogram is pending. Given the patient's multiple comorbidities and acute illness, he meets inpatient status. The care of this patient was discussed with Dr. Martinez, who agrees with the above. Further recommendations based on hospital course. Job ID: [id number]
[2018-10-02] MEDS: Rosuvastatin 10 MG TAB PO SCH (20:56)
[2018-10-03] MEDS: Azithromycin 500 MG in Sodium Chloride 0.9% 250 ML 250 ML IVPB SCH (02:12)
[2018-10-03] MEDS: cefTRIAXone\\ROCEPHIN 1 GM in Sodium Chloride 0.9% 100 ML IVPB SCH (02:12)
[2018-10-03 04:24] LABS: #Basophils 0.1 thou/uL (0.0-0.2); #Eosinphils 0.1 thou/uL (0.0-0.7); #Lymphocytes 1.6 thou/uL (1.20-3.40); #Monocytes 1.2 thou/uL (0.11-0.59); #Neutrophils 9.5 thou/uL (1.40-6.50); %Basophils 0.5 % (0.0-1.0); %Lymphocytes 13.1 % (21.0-51.0); %Monocytes 9.8 % (0.0-10.0); %Neutrophils 75.7 % (42.0-75.0); Hemoglobin 11.5 g/dL (14.0-18.0); Mean Corpuscular Hemoglobin 29.4 pg (27.0-31.0); Mean Corpuscular Volume 89.2 fL (78.0-98.0); Mean Platelet Volume 8.2 fL (7.4-10.4); Platelet Count 134 thou/uL (130-400); RBC Distribution Width 16.5 % (11.5-14.5); Red Blood Cell (RBC) Count 3.92 mill/uL (4.70-6.10); White Blood Cell (WBC) Count 12.5 thou/uL (4.8-10.8)
[2018-10-03 04:43] LABS: Anion Gap 14 mmol/L (10-20); BUN (Urea Nitrogen) 19 mg/dL (8.4-25.7); Calc. Creatinine Clearance 70 mL/min (70-130); Calcium 8.3 mg/dL (7.8-10.44); Carbon Dioxide 23 mmol/L (23-31); Chloride 103 mmol/L (98-107); Estimated GFR-MDRD 51; Glucose 123 mg/dL (80-115); Potassium 4.2 mmol/L (3.5-5.1); Sodium 136 mmol/L (136-145)
[2018-10-03] MEDS ORDERED: Artificial Tears 18 DROP/0.9 ML EA EYE PRN (07:21)
[2018-10-03] MEDS ORDERED: Diabetic Tussin 200 MG/10 ML UDCUP PO PRN (07:21)
[2018-10-03] MEDS ORDERED: HYDROcodone/Acetaminophen 5/325 mg Tablet PO PRN (07:21)
[2018-10-03] MEDS ORDERED: Bisacodyl 10 MG SUPP PR PRN (07:21)
[2018-10-03] MEDS ORDERED: Loperamide HCl 2 MG CAP PO PRN (07:21)
[2018-10-03] MEDS ORDERED: Metoclopramide HCl 10 MG/2 ML VIAL IVP PRN (07:21)
[2018-10-03] MEDS ORDERED: Cepastat Lozenges 1 LOZ PO PRN (07:21)
[2018-10-03] MEDS ORDERED: Loratadine 10 MG TAB PO PRN (07:21)
[2018-10-03] MEDS ORDERED: Zolpidem Tartrate 5 MG TAB PO PRN (07:21)
[2018-10-03] MEDS ORDERED: hydrALAZINE 20 MG/ML VIAL SLOW IVP PRN (07:21)
[2018-10-03] MEDS ORDERED: Senokot S 8.6-50 MG TAB PO PRN (07:21)
[2018-10-03] MEDS ORDERED: Sodium Chloride 0.65% Nasal 44 ML BOT EA NARE PRN (07:21)
[2018-10-03] MEDS ORDERED: Eucerin (Mineral Oil/Petrolatum,White) 30 gm Jar TOP PRN (07:21)
[2018-10-03] MEDS ORDERED: Nitroglycerin 0.4 MG TAB (25 Tab Bottle) SL PRN (07:21)
[2018-10-03] MEDS: Spironolactone 25 MG TAB PO SCH (08:26)
[2018-10-03] MEDS: Carvedilol 25 MG TAB PO SCH ×2 (08:26→17:29)
[2018-10-03] MEDS: Furosemide 20 MG TAB PO SCH ×2 (08:27→12:32)
[2018-10-03] MEDS: Aspirin 325 mg Enteric Coated Tablet PO SCH (08:27)
[2018-10-03] MEDS: Enoxaparin Sodium 40 MG/0.4 ML SYRINGE SC SCH (08:28)
[2018-10-03] MEDS: PARoxetine 20 MG TAB PO SCH (08:28)
--- NOTE | 2018-10-03 10:13 | PDOC.PN ---
- Subjective Encounter Start Date: 10/03/18 Encounter Start Time: 07:40 -: old records requested/rev Patient seen and examined. No new complaints. No overnight events - Objective Resuscitation Status - Order Detail: 10/02/18 05:44 Resuscitation Status Routine Resuscitation Status: FULL: Full Resuscitation MAR Reviewed: Yes Vital Signs & Weight: Vital Signs (12 hours) Temp Pulse Resp BP BP Pulse Ox 10/03/18 08:27 112/55 L 10/03/18 07:00 98.3 F 91 18 112/55 L 92 L 10/03/18 03:25 98.3 F 95 16 110/67 92 L 10/03/18 01:09 93 16 92 L 10/02/18 23:31 98.8 F 85 16 110/56 L 93 L Weight Weight 212 lb 1 oz I&O: 10/02/18 10/03/18 10/04/18 06:59 06:59 06:59 Intake Total 740 650 Output Total 1375 400 Balance -635 250 Result Diagrams: 10/03/18 04:11 10/03/18 04:11 Additional Labs: Accuchecks 10/02/18 11:46 POC Glucose 100 Radiology Reviewed by me: Yes EKG Reviewed by me: Yes Phys Exam - Physical Examination Constitutional: NAD HEENT: PERRLA, moist MMs, sclera anicteric Neck: no JVD, supple Respiratory: no wheezing, no rales, no rhonchi Cardiovascular: RRR, no significant murmur, no rub Gastrointestinal: soft, non-tender, no distention, positive bowel sounds Musculoskeletal: no edema, pulses present Neurological: non-focal, normal sensation Lymphatic: no nodes Psychiatric: normal affect, A&O x 3 Skin: no rash, normal turgor Dx/Plan (1) Acute on chronic systolic ACC/AHA stage C congestive heart failure Code(s): I50.23 - ACUTE ON CHRONIC SYSTOLIC (CONGESTIVE) HEART FAILURE Status : Acute (2) Community acquired bacterial pneumonia Code(s): J15.9 - UNSPECIFIED BACTERIAL PNEUMONIA Status: Acute Comment: (3) Type [address] elevation Code(s): I21.A1 - MYOCARDIAL INFARCTION TYPE 2 Status: Acute (4) Anxiety and depression Code(s): F41.9 - ANXIETY DISORDER, UNSPECIFIED; F32.9 - MAJOR DEPRESSIVE DISORDER, SINGLE EPISODE, UNSPECIFIED Status: Chronic (5) CAD (coronary artery disease) Code(s): I25.10 - ATHSCL HEART DISEASE OF [place] CORONARY ARTERY W/O ANG PCTRS Status: Chronic Comment: (6) CKD (chronic kidney disease), stage III Code(s): N18.3 - CHRONIC KIDNEY DISEASE, STAGE 3 (MODERATE) Status: Chronic Comment: stable (7) Dyslipidemia Code(s): E78.5 - HYPERLIPIDEMIA, UNSPECIFIED Status: Chronic (8) HTN (hypertension) Code(s): I10 - ESSENTIAL (PRIMARY) HYPERTENSION Status: Chronic Qualifiers: Comment: controlled (9) Moderate aortic regurgitation Code(s): I35.1 - NONRHEUMATIC AORTIC (VALVE) INSUFFICIENCY Status: Chronic (10) Moderate mitral regurgitation Code(s): I34.0 - NONRHEUMATIC MITRAL (VALVE) INSUFFICIENCY Status: Chronic (11) Obesity (BMI 30.0-34.9) Code(s): E66.9 - OBESITY, UNSPECIFIED Status: Chronic - Plan cont current plan of care, plan discussed w/ family, continue antibiotics * medication reviewed as below * symptomatic treatment * continue rocephin and azithromycin * pt has appointment with his cardiology in 1-2 week. Review of Systems - Review of Systems ENT: negative: Ear Pain, Ear Discharge, Nose Pain, Nose Discharge, Nose Congestion, Mouth Pain, Mouth Swelling, Throat Pain, Throat Swelling, Other Respiratory: negative: Cough, Dry, Shortness of Breath, Hemoptysis, SOB with Excertion, Pleuritic Pain, Sputum, Wheezing Cardiovascular: negative: chest pain, palpitations, orthopnea, paroxysmal nocturnal dyspnea, edema, light headedness, other Gastrointestinal: negative: Nausea, Vomiting, Abdominal Pain, Diarrhea, Constipation, Melena, Hematochezia, Other Genitourinary: negative: Dysuria, Frequency, Incontinence, Hematuria, Retention , Other Musculoskeletal: negative: Neck Pain, Shoulder Pain, Arm Pain, Back Pain, Hand Pain, Leg Pain, Foot Pain, Other - Medications/Allergies Allergies/Adverse Reactions: Allergies Allergy/AdvReac Type Severity Reaction Status Date / Time No Known Allergies Allergy Verified 04/06/18 22:50 Medications: Current Medications Acetaminophen (Tylenol) 650 mg PO Q4H PRN PRN Reason: Headache/Fever/Mild Pain (1-3) Last Admin: 10/02/18 17:52 Dose: 650 mg Hydrocodone Bitart/Acetaminophen ([place] 5/325) 1 tab PO Q4H PRN PRN Reason: Moderate Pain (4-6) Albuterol/Ipratropium (Duoneb) 3 ml NEB [id number] PRN PRN Reason: SOB &/or Wheezing Last Admin: 10/03/18 01:09 Dose: 3 ml Artificial Tears (Tears Naturale) 2 drop EA EYE PRN PRN PRN Reason: Dry Eyes Aspirin (Ecotrin) 325 mg PO DAILY [facility] Last Admin: 10/03/18 08:27 Dose: 325 mg Bisacodyl (Dulcolax) 10 mg [place] DAILYPRN PRN PRN Reason: Constipation Carvedilol (Coreg) 25 mg PO BID-[facility] Last Admin: 10/03/18 08:26 Dose: 25 mg Enalapril Maleate (Vasotec) 2.5 mg PO DAILY [facility] Last Admin: 10/03/18 08:27 Dose: 2.5 mg Enoxaparin Sodium (Lovenox) 40 mg SC 0900 [facility] Last Admin: 10/03/18 08:28 Dose: 40 mg Furosemide (Lasix) 20 mg PO 0900,1400 [facility] Last Admin: 10/03/18 08:27 Dose: 20 mg Guaifenesin (Robitussin Sf) 200 mg PO Q4H PRN PRN Reason: Cough Hydralazine HCl (Apresoline) 10 mg SLOW IVP Q4H PRN PRN Reason: SBP > 180 and HR < 70 Azithromycin 500 mg/ Sodium (Chloride) 250 mls @ 250 mls/hr IVPB 0300 [facility] Last Admin: 10/03/18 02:12 Dose: 250 mls Ceftriaxone Sodium 1 gm/ (Sodium Chloride) 100 mls @ 200 mls/hr IVPB 0300 [facility] Last Admin: 10/03/18 02:12 Dose: 100 mls Loperamide HCl (Imodium) 2 mg PO PRN PRN PRN Reason: Diarrhea/Loose Stools Loratadine (Claritin) 10 mg PO DAILYPRN PRN PRN Reason: Sinus Symptoms Metoclopramide HCl (Reglan) 5 mg IVP Q4H PRN PRN Reason: Nausea Mineral Oil/White Petrolatum (Eucerin Cream) 0 gm TOP BIDPRN PRN PRN Reason: Dry Skin Nitroglycerin (Nitrostat) 0.4 mg SL Q5MIN PRN PRN Reason: Chest Pain Paroxetine HCl (Paxil) 40 mg PO DAILY [facility] Last Admin: 10/03/18 08:28 Dose: 40 mg Rosuvastatin Calcium (Crestor) 10 mg PO HS [facility] Last Admin: 10/02/18 20:56 Dose: 10 mg Senna/Docusate Sodium (Senokot S) 2 tab PO BID PRN PRN Reason: Constipation Sodium Chloride ([place] Nasal [place] 0.65%) 0 ml EA NARE QIDPRN PRN PRN Reason: Nasal Congestion Spironolactone (Aldactone) 25 mg PO QAM-WM [facility] Last Admin: 10/03/18 08:26 Dose: 25 mg Throat Lozenges (Cepastat Lozenges) 1 haroon PO Q2H PRN PRN Reason: Sore Throat Zolpidem Tartrate (Ambien) 5 mg PO HSPRN PRN PRN Reason: Insomnia
[2018-10-03] MEDS: Rosuvastatin 10 MG TAB PO SCH (20:39)
[2018-10-04] MEDS: cefTRIAXone\\ROCEPHIN 1 GM in Sodium Chloride 0.9% 100 ML IVPB SCH (02:09)
[2018-10-04] MEDS: Azithromycin 500 MG in Sodium Chloride 0.9% 250 ML 250 ML IVPB SCH (02:09)
[2018-10-04 07:54] LABS: #Basophils 0.1 thou/uL (0.0-0.2); #Eosinphils 0.4 thou/uL (0.0-0.7); #Lymphocytes 2.2 thou/uL (1.20-3.40); #Neutrophils 6.2 thou/uL (1.40-6.50); %Basophils 0.9 % (0.0-1.0); %Eosinophils 4.3 % (0.0-10.0); %Lymphocytes 22.1 % (21.0-51.0); %Monocytes 9.8 % (0.0-10.0); %Neutrophils 62.9 % (42.0-75.0); Mean Corpuscular Hemoglobin 29.6 pg (27.0-31.0); Mean Corpuscular Volume 87.1 fL (78.0-98.0); Mean Platelet Volume 7.9 fL (7.4-10.4); Platelet Count 140 thou/uL (130-400); RBC Distribution Width 16.4 % (11.5-14.5); Red Blood Cell (RBC) Count 4.06 mill/uL (4.70-6.10); White Blood Cell (WBC) Count 9.9 thou/uL (4.8-10.8)
[2018-10-04 08:01] VITALS: TEMP 98.7
--- NOTE | 2018-10-04 08:09 | PDOC.PN ---
- Subjective Encounter Start Date: 10/04/18 Encounter Start Time: 07:00 Patient seen and examined. No new complaints. No overnight events - Objective Resuscitation Status - Order Detail: 10/02/18 05:44 Resuscitation Status Routine Resuscitation Status: FULL: Full Resuscitation MAR Reviewed: Yes Vital Signs & Weight: Vital Signs (12 hours) Temp Pulse Resp BP Pulse Ox 10/04/18 08:00 98.7 F 73 18 107/58 L 95 10/04/18 03:36 97.8 F 81 112/68 93 L 10/03/18 23:37 98 F 76 16 93/51 L 96 Weight Weight 212 lb 1 oz I&O: 10/03/18 10/04/18 10/05/18 06:59 06:59 06:59 Intake Total 740 1970 Output Total 1375 400 Balance -635 1570 Result Diagrams: 10/04/18 07:41 10/03/18 04:11 EKG Reviewed by me: Yes Phys Exam - Physical Examination Constitutional: NAD HEENT: PERRLA, moist MMs, sclera anicteric Neck: no JVD, supple Respiratory: no wheezing, no rales, no rhonchi Cardiovascular: RRR, no significant murmur, no rub Gastrointestinal: soft, non-tender, no distention, positive bowel sounds Musculoskeletal: no edema, pulses present Neurological: non-focal, normal sensation Lymphatic: no nodes Psychiatric: normal affect, A&O x 3 Skin: no rash, normal turgor Dx/Plan (1) Acute on chronic systolic ACC/AHA stage C congestive heart failure Code(s): I50.23 - ACUTE ON CHRONIC SYSTOLIC (CONGESTIVE) HEART FAILURE Status : Acute (2) Community acquired bacterial pneumonia Code(s): J15.9 - UNSPECIFIED BACTERIAL PNEUMONIA Status: Acute Comment: (3) Type [address] elevation Code(s): I21.A1 - MYOCARDIAL INFARCTION TYPE 2 Status: Acute (4) Anxiety and depression Code(s): F41.9 - ANXIETY DISORDER, UNSPECIFIED; F32.9 - MAJOR DEPRESSIVE DISORDER, SINGLE EPISODE, UNSPECIFIED Status: Chronic (5) CAD (coronary artery disease) Code(s): I25.10 - ATHSCL HEART DISEASE OF [place] CORONARY ARTERY W/O ANG PCTRS Status: Chronic Comment: (6) CKD (chronic kidney disease), stage III Code(s): N18.3 - CHRONIC KIDNEY DISEASE, STAGE 3 (MODERATE) Status: Chronic Comment: stable (7) Dyslipidemia Code(s): E78.5 - HYPERLIPIDEMIA, UNSPECIFIED Status: Chronic (8) HTN (hypertension) Code(s): I10 - ESSENTIAL (PRIMARY) HYPERTENSION Status: Chronic Qualifiers: Comment: controlled (9) Moderate aortic regurgitation Code(s): I35.1 - NONRHEUMATIC AORTIC (VALVE) INSUFFICIENCY Status: Chronic (10) Moderate mitral regurgitation Code(s): I34.0 - NONRHEUMATIC MITRAL (VALVE) INSUFFICIENCY Status: Chronic (11) Obesity (BMI 30.0-34.9) Code(s): E66.9 - OBESITY, UNSPECIFIED Status: Chronic - Plan cont current plan of care, continue antibiotics * po levaquin * medication reviewed as below * symptomatic treatment * see discharge diaz. Review of Systems - Review of Systems ENT: negative: Ear Pain, Ear Discharge, Nose Pain, Nose Discharge, Nose Congestion, Mouth Pain, Mouth Swelling, Throat Pain, Throat Swelling, Other Respiratory: negative: Cough, Dry, Shortness of Breath, Hemoptysis, SOB with Excertion, Pleuritic Pain, Sputum, Wheezing Cardiovascular: negative: chest pain, palpitations, orthopnea, paroxysmal nocturnal dyspnea, edema, light headedness, other Gastrointestinal: negative: Nausea, Vomiting, Abdominal Pain, Diarrhea, Constipation, Melena, Hematochezia, Other Genitourinary: negative: Dysuria, Frequency, Incontinence, Hematuria, Retention , Other Musculoskeletal: negative: Neck Pain, Shoulder Pain, Arm Pain, Back Pain, Hand Pain, Leg Pain, Foot Pain, Other - Medications/Allergies Allergies/Adverse Reactions: Allergies Allergy/AdvReac Type Severity Reaction Status Date / Time No Known Allergies Allergy Verified 04/06/18 22:50 Medications: Current Medications Acetaminophen (Tylenol) 650 mg PO Q4H PRN PRN Reason: Headache/Fever/Mild Pain (1-3) Last Admin: 10/02/18 17:52 Dose: 650 mg Hydrocodone Bitart/Acetaminophen ([place] 5/325) 1 tab PO Q4H PRN PRN Reason: Moderate Pain (4-6) Last Admin: 10/03/18 12:32 Dose: 1 tab Albuterol/Ipratropium (Duoneb) 3 ml NEB [id number] PRN PRN Reason: SOB &/or Wheezing Last Admin: 10/03/18 01:09 Dose: 3 ml Artificial Tears (Tears Naturale) 2 drop EA EYE PRN PRN PRN Reason: Dry Eyes Aspirin (Ecotrin) 325 mg PO DAILY [facility] Last Admin: 10/03/18 08:27 Dose: 325 mg Bisacodyl (Dulcolax) 10 mg NE DAILYPRN PRN PRN Reason: Constipation Carvedilol (Coreg) 25 mg PO BID-[facility] Last Admin: 10/03/18 17:29 Dose: 25 mg Enalapril Maleate (Vasotec) 2.5 mg PO DAILY [facility] Last Admin: 10/03/18 08:27 Dose: 2.5 mg Enoxaparin Sodium (Lovenox) 40 mg SC 0900 [facility] Last Admin: 10/03/18 08:28 Dose: 40 mg Furosemide (Lasix) 20 mg PO 0900,1400 [facility] Last Admin: 10/03/18 12:32 Dose: 20 mg Guaifenesin (Robitussin Sf) 200 mg PO Q4H PRN PRN Reason: Cough Hydralazine HCl (Apresoline) 10 mg SLOW IVP Q4H PRN PRN Reason: SBP > 180 and HR < 70 Azithromycin 500 mg/ Sodium (Chloride) 250 mls @ 250 mls/hr IVPB 0300 [facility] Last Admin: 10/04/18 02:09 Dose: 250 mls Ceftriaxone Sodium 1 gm/ (Sodium Chloride) 100 mls @ 200 mls/hr IVPB 0300 [facility] Last Admin: 10/04/18 02:09 Dose: 100 mls Loperamide HCl (Imodium) 2 mg PO PRN PRN PRN Reason: Diarrhea/Loose Stools Loratadine (Claritin) 10 mg PO DAILYPRN PRN PRN Reason: Sinus Symptoms Metoclopramide HCl (Reglan) 5 mg IVP Q4H PRN PRN Reason: Nausea Mineral Oil/White Petrolatum (Eucerin Cream) 0 gm TOP BIDPRN PRN PRN Reason: Dry Skin Nitroglycerin (Nitrostat) 0.4 mg SL Q5MIN PRN PRN Reason: Chest Pain Paroxetine HCl (Paxil) 40 mg PO DAILY [facility] Last Admin: 10/03/18 08:28 Dose: 40 mg Rosuvastatin Calcium (Crestor) 10 mg PO [facility] Last Admin: 10/03/18 20:39 Dose: 10 mg Senna/Docusate Sodium (Senokot S) 2 tab PO BID PRN PRN Reason: Constipation Sodium Chloride ([place] Nasal [place] 0.65%) 0 ml EA NARE QIDPRN PRN PRN Reason: Nasal Congestion Spironolactone (Aldactone) 25 mg PO QA-[facility] Last Admin: 10/03/18 08:26 Dose: 25 mg Throat Lozenges (Cepastat Lozenges) 1 haroon PO Q2H PRN PRN Reason: Sore Throat Zolpidem Tartrate (Ambien) 5 mg PO HSPRN PRN PRN Reason: Insomnia
[2018-10-04 08:10] LABS: Anion Gap 13 mmol/L (10-20); BUN (Urea Nitrogen) 22 mg/dL (8.4-25.7); Calc. Creatinine Clearance 74 mL/min (70-130); Calcium 8.3 mg/dL (7.8-10.44); Carbon Dioxide 23 mmol/L (23-31); Chloride 104 mmol/L (98-107); Estimated GFR-MDRD 55; Glucose 107 mg/dL (80-115); Potassium 4.1 mmol/L (3.5-5.1); Sodium 136 mmol/L (136-145)
--- NOTE | 2018-10-04 08:36 | DIS ---
DATE OF ADMISSION: 10/02/2018 DATE OF DISCHARGE: 10/04/2018 PRIMARY CARE PHYSICIAN: Maria Fernanda White MD. DISCHARGE DISPOSITION: Home. PRIMARY DISCHARGE DIAGNOSES: Community-acquired bacterial pneumonia; mild acute on chronic systolic congestive heart failure, stage C; type [address] elevation. SECONDARY DISCHARGE DIAGNOSES: Chronic systolic and diastolic heart failure, obesity, moderate mitral and aortic regurgitation, hypertension, dyslipidemia, chronic kidney disease stage 3, coronary artery disease, anxiety and depression, history of aortic valve replacement. PRIMARY PROCEDURE/OPERATION: None. RADIOLOGICAL INVESTIGATION: Chest x-ray and echocardiography. SIGNIFICANT LABORATORY DATA: Hemoglobin 12.0. D-dimer 0.93, creatinine 1.30. Urinalysis normal. Blood culture negative. DISCHARGE MEDICATIONS: 1. Coreg 25 mg b.i.d. 2. Enalapril 20 mg daily. 3. Lasix 20 mg b.i.d. 4. Paroxetine 40 mg p.o. daily. 5. Aldactone 25 mg daily. 6. Ventolin inhaler two puffs q.6 hourly p.r.n. 7. Aspirin 325 mg daily. 8. Levaquin 500 mg p.o. daily for 5 days. 9. Crestor 20 mg p.o. at bedtime. CONTRAINDICATION: None. CODE STATUS: Full code. INPATIENT STENOGRAPHER SECRETARY: None. ALLERGIES: NO KNOWN DRUG ALLERGIES. DISCHARGE PLAN: Posthospital, the patient has appointment with his own rounder hand in next week, and the patient will make appointment with primary care physician in 1 week. HOSPITAL COURSE: A 68-year-old male, who was admitted by Dr. Burr, please see his H and P for further details. The patient was admitted for increasing cough and shortness of breath. He was diagnosed with right lower lobe pneumonia. He was admitted to the hospital initially as an observation status, and subsequently, we changed to inpatient status. He was also having mild congestive heart failure flare up. He was treated with levofloxacin while in hospital with significant clinical improvement. He was also given initially Rocephin and azithromycin IV, and subsequently, on the day of discharge, we changed to p.o. Levaquin. His home medication was continued. He was given IV Lasix, and he was euvolemic and on room air by the time of discharge. We have not consulted Cardiology during this admission because he has own rounder hand and he has appointment with them next week, where at that time he is scheduled for cardiac catheterization. The patient is currently asymptomatic. He has already pacemaker/defibrillator. He will follow up with his own doctor in next week. Job ID: [id number]
[2018-10-04] MEDS: Furosemide 20 MG TAB PO SCH (09:06)
[2018-10-04] MEDS: PARoxetine 20 MG TAB PO SCH (09:07)
[2018-10-04] MEDS: Aspirin 325 mg Enteric Coated Tablet PO SCH (09:07)
[2018-10-04] MEDS: Spironolactone 25 MG TAB PO SCH (09:08)
[2018-10-04] MEDS: Carvedilol 25 MG TAB PO SCH (09:14)
[2018-10-04 09:15] VITALS: BP 112/55
[2018-10-04] MEDS: Enoxaparin Sodium 40 MG/0.4 ML SYRINGE SC SCH (09:15)
--- NOTE | 2018-10-06 12:39 | PQF ---
PANCHITO ESCOBAR, SADIE MOONEY MD [id number] [address] [place] [address] [id number] CLINICAL DOCUMENTATION IMPROVEMENT CLARIFICATION FORM: ICD-10 Updated PLEASE DO AN ADDENDUM TO THE PROGRESS NOTE WITH ANY DOCUMENTATION UPDATES OR ADDITIONS AND CARRY THROUGH TO DC SUMMARY. THANK YOU. DATE: 10/06/18 ATTN: DR TREADWELL Please exercise your independent, professional judgment in responding to the clarification form. Clinical indicators are provided on the bottom of this form for your review Please check appropriate box(es): [ x ] Sepsis due to: RLL Pneumonia/CAP [ ] Localized infection without sepsis [ ] Other diagnosis [ ] Unable to determine In addition, please specify: Present on Admission (POA): [x ] Yes [ ] No [ ] Unable to determine For continuity of documentation, please document condition throughout progress notes and discharge summary. Thank You. CLINICAL INDICATORS - SIGNS / SYMPTOMS / LABS Respiratory rate >20/min, Hypoxemia--> RR 22; 94% O2 sat on 3L NC per 10/02 VS flowsheet Pulse 95 10/02 VS flowsheet wbc 18.2; 81.4% neutros per 10/02 lab lactic acid 3.2 per 10/02 lab RISK FACTORS RLL Pneumonia, mild CHF per H&P TREATMENTS: Daily CBC 10/02 to 10/04/18 per orders Blood cultures 10/02 per orders IV antibiotics - broad spectrum--> Rocephin and Azithromycin IV 10/02-10/04 per MAR (This form is maintained as a part of the permanent medical record) 2014 [employer]. All Rights Reserved Bela Ford RN, BSN, CCDS MTDDaniel
== END 2018-10-04 10:15 | disposition home or self-care (01) | DRG 280 ==
LOC: ERS 02:03 → ERHOLD 03:17 → 2SE 03:48
PROVIDERS: ADMIT Internal Medicine; ATTEND Internal Medicine
DX: I13.0 Hypertensive heart and chronic kidney disease with heart failure and stage 1 through stage 4 chronic kidney disease, or unspecified chronic kidney disease (principal); I50.23 Acute on chronic systolic (congestive) heart failure; I21.A1 Myocardial infarction type 2; J15.9 Unspecified bacterial pneumonia; J44.0 Chronic obstructive pulmonary disease with (acute) lower respiratory infection; Z95.2 Presence of prosthetic heart valve; Z95.0 Presence of cardiac pacemaker; I08.0 Rheumatic disorders of both mitral and aortic valves; I42.9 Cardiomyopathy, unspecified; N18.3 Chronic kidney disease, stage 3 (moderate); I25.10 Atherosclerotic heart disease of native coronary artery without angina pectoris; F41.9 Anxiety disorder, unspecified; F32.9 Major depressive disorder, single episode, unspecified; E78.5 Hyperlipidemia, unspecified; E66.9 Obesity, unspecified; Z87.891 Personal history of nicotine dependence; Z68.33 Body mass index [BMI] 33.0-33.9, adult
CPT/HCPCS: 36415; 36416; 71045; 80048; 80053; 81003; 82550; 82553; 83605; 83880; 84484; 85025; 85379; 87040; 87804; 93005; 93306; 94640; 96365; J0456; J0696; J1650; J1940; J2405; J3490; J7050; J7620

== ENCOUNTER 2021-03-18 19:30 | Outpatient (CLI) | payer MEDICARE | END 2021-03-18 19:31 | disposition home or self-care (01) | LOC: SLEEPLAB 19:30 | PROVIDERS: ATTEND Registered Nurse | DX: G47.33 Obstructive sleep apnea (adult) (pediatric) (principal); R06.83 Snoring; G47.10 Hypersomnia, unspecified; E66.9 Obesity, unspecified; Z68.32 Body mass index [BMI] 32.0-32.9, adult | CPT/HCPCS: 95811 ==

== ENCOUNTER 2021-03-22 10:39 | Outpatient (CLI) | payer MEDICARE ==
[2021-03-22] MEDS ORDERED: Iopamidol 300 61% 50 ML VIAL FS ONE (11:25)
[2021-03-22] MEDS ORDERED: Lidocaine 1% PF 10 ML AMP ONE (11:25)
[2021-03-22] MEDS ORDERED: EPINEPHrine 1 MG/ML AMP ONE (11:25)
== END 2021-03-22 10:40 | disposition home or self-care (01) ==
LOC: RAD 10:39
PROVIDERS: ATTEND Orthopaedic Surgery
DX: S46.012A Strain of muscle(s) and tendon(s) of the rotator cuff of left shoulder, initial encounter (principal); M62.512 Muscle wasting and atrophy, not elsewhere classified, left shoulder; M75.122 Complete rotator cuff tear or rupture of left shoulder, not specified as traumatic
CPT/HCPCS: 23350; J0171; J2001; Q9967

== ENCOUNTER 2021-04-25 10:00 | Outpatient (CLI) | payer MEDICARE ==
[2021-04-25 11:23] LABS: #Basophils 0.1 10x3/uL (0.0-0.2); #Eosinphils 0.6 10x3/uL (0.0-0.5); #Monocytes 1.1 10x3/uL (0.0-1.1); #Neutrophils 5.9 10x3/uL (1.5-8.4); %Basophils 1.3 % (0.0-2.0); %Lymphocytes 18.2 % (18.0-47.0); %Monocytes 11.2 % (0.0-10.0); %Neutrophils 62.7 % (40.0-75.0); Hemoglobin 11.4 g/dL (13.5-17.5); Mean Corpuscular HGB CONC 30.5 g/dL (32.0-36.0); Mean Corpuscular Hemoglobin 27.4 pg (27.0-33.0); Mean Corpuscular Volume 89.9 fl (81.2-95.1); Mean Platelet Volume 9.9 fl (7.4-10.4); Platelet Count 175 10x3/uL (150-450); RBC Distribution Width 16.2 % (11.5-14.5); Red Blood Cell (RBC) Count 4.16 10x6/uL (4.32-5.72); White Blood Cell (WBC) Count 9.4 10x3/uL (3.5-10.5)
[2021-04-25 11:59] LABS: ALT (SGPT) 29 U/L (8-55); AST (SGOT) 20 U/L (5-34); Alkaline Phosphatase 106 U/L (40-110); Anion Gap 16 mmol/L (10-20); BUN (Urea Nitrogen) 18 mg/dL (8.4-25.7); Bilirubin, Total 0.5 mg/dL (0.2-1.2); Calc. Creatinine Clearance 0 mL/min (70-130); Calcium 8.6 mg/dL (7.8-10.44); Carbon Dioxide 23 mmol/L (23-31); Cardiac Risk 7.6 (Less than 4.5); Chloride 111 mmol/L (98-107); Cholesterol 221 mg/dl (< 200 Desired); Globulin 2.5 g/dL (2.4-3.5); Glucose 109 mg/dL (80-115); HDL Cholesterol 29 mg/dL (>60 Neg Risk); Potassium 4.7 mmol/L (3.5-5.1); Protein, Total 6.5 g/dL (5.8-8.1); Sodium 145 mmol/L (136-145); Triglycerides 402 mg/dL (Less than 150)
[2021-04-25 12:01] LABS: LDL Cholesterol, Calculated 112 mg/dL
[2021-04-25 17:08] LABS: SARS-CoV-2 PCR by NAA Not Detected (NotDetected)
== END 2021-04-25 10:01 | disposition home or self-care (01) ==
LOC: LABBT 10:00
PROVIDERS: ATTEND Orthopaedic Surgery
DX: Z01.818 Encounter for other preprocedural examination (principal); S46.012A Strain of muscle(s) and tendon(s) of the rotator cuff of left shoulder, initial encounter; Z20.822 Contact with and (suspected) exposure to COVID-19
CPT/HCPCS: 80053; 80061; 85025; 93005; G0103; U0003; U0005; 93010

== ENCOUNTER 2021-04-26 06:10 | Day surgery (SDC) | payer MEDICARE ==
[2021-04-25 15:34] VITALS: BMI 32.8
[2021-04-26] MEDS ORDERED: ceFAZolin 2 GM/DEX 5% 100 ML BAG ONE (06:34)
[2021-04-26] MEDS ORDERED: Sodium Chloride 0.9% 100 ML ONE (06:34)
[2021-04-26] MEDS ORDERED: Tranexamic Acid 1,000 MG/10 ML VIAL ONE (06:34)
[2021-04-26] MEDS ORDERED: Vancomycin 1.5 GRAM/300 ML BAG 1.5 GM in Premix Bag 1 BAG IVPB SCH (06:45)
[2021-04-26] MEDS ORDERED: Midazolam HCl 2 mg/2 ml Vial ONE (07:04)
[2021-04-26] MEDS ORDERED: Fentanyl 100 MCG/2 ML VIAL ONE (07:04)
[2021-04-26] MEDS ORDERED: Ondansetron PF 4 MG/2 ML Vial ONE (07:44)
[2021-04-26] MEDS ORDERED: PHENYLEPHRINE-NS 100 MCG/ML 10 ML SYRINGE ONE (07:44)
[2021-04-26] MEDS ORDERED: PROPOFOL 200 MG/20 ML VIAL ONE (07:44)
[2021-04-26] MEDS ORDERED: Ropivacaine 2% HCl/PF (20 MG/10 ML VIAL) ONE (07:44)
[2021-04-26] MEDS ORDERED: Lidocaine 1% PF 5 ML VIAL ONE (07:44)
[2021-04-26] MEDS ORDERED: Rocuronium Bromide 10 MG/ML (10ML VIAL) ONE (07:44)
[2021-04-26] MEDS ORDERED: Ropivacaine 0.5% HCl/PF (150 MG/30 ML VIAL) ONE (07:44)
[2021-04-26] MEDS ORDERED: Fentanyl 100 MCG/2 ML VIAL IV PRN (07:56)
[2021-04-26] MEDS ORDERED: HYDROcodone/Acetaminophen 5/325 mg Tablet PO PRN ×2 (08:00)
[2021-04-26] MEDS ORDERED: Ropivacaine 0.2% 550 ML 550 ML NERVE BLCK SCH (08:00)
[2021-04-26] MEDS ORDERED: Zolpidem Tartrate 5 MG TAB PO PRN (08:00)
[2021-04-26] MEDS ORDERED: Promethazine HCl 25 MG/ML VIAL IM PRN (08:00)
[2021-04-26] MEDS ORDERED: Ketorolac Tromethamine 30 MG/ML VIAL IVP PRN (08:00)
[2021-04-26] MEDS ORDERED: Ondansetron PF 4 MG/2 ML Vial IVP PRN (08:00)
[2021-04-26] MEDS ORDERED: traMADol HCl 50 MG TAB PO PRN ×2 (08:00)
[2021-04-26] MEDS ORDERED: SUGAMMADEX SODIUM 200 MG/2 ML VIAL ONE ×2 (08:58)
[2021-04-26] MEDS ORDERED: HYDROcodone/Acetaminophen 5/325 mg Tablet ONE (13:33)
== END 2021-04-26 15:45 | disposition home or self-care (01) ==
LOC: SDC 06:10
PROVIDERS: ATTEND Orthopaedic Surgery
PROC: 0RRK00Z Replacement of Left Shoulder Joint with Reverse Ball and Socket Synthetic Substitute, Open Approach (ICD-10-PCS; principal; 2021-04-26)
PROC: 3E0T3BZ Introduction of Anesthetic Agent into Peripheral Nerves and Plexi, Percutaneous Approach (ICD-10-PCS; 2021-04-26)
DX: S46.012A Strain of muscle(s) and tendon(s) of the rotator cuff of left shoulder, initial encounter (principal); M19.011 Primary osteoarthritis, right shoulder; I11.0 Hypertensive heart disease with heart failure; I50.9 Heart failure, unspecified; E78.00 Pure hypercholesterolemia, unspecified; I25.10 Atherosclerotic heart disease of native coronary artery without angina pectoris; J44.9 Chronic obstructive pulmonary disease, unspecified; K21.9 Gastro-esophageal reflux disease without esophagitis; Z87.891 Personal history of nicotine dependence; Z79.01 Long term (current) use of anticoagulants; Z79.82 Long term (current) use of aspirin; Z79.899 Other long term (current) drug therapy; Z95.2 Presence of prosthetic heart valve; Z95.810 Presence of automatic (implantable) cardiac defibrillator; Z96.642 Presence of left artificial hip joint; W20.8XXA Other cause of strike by thrown, projected or falling object, initial encounter
CPT/HCPCS: 23472; 64416; 97139; A4306; C1713; J2250; J2405; J2704; J2795; J3010; J3370; J3490

== ENCOUNTER 2021-04-30 10:53 | Emergency (ER) | payer MEDICARE ==
[~2021-04-30 10:53] MED LIST: Iopamidol-370 76% 500 ML 1 ML ONE
[2021-04-30 11:42] LABS: #Basophils 0.1 thou/uL (0.0-0.2); #Eosinphils 0.3 thou/uL (0.0-0.7); #Lymphocytes 1.6 thou/uL (1.20-3.40); #Monocytes 1.3 thou/uL (0.11-0.59); #Neutrophils 10.7 thou/uL (1.40-6.50); %Basophils 0.5 % (0.0-1.0); %Lymphocytes 11.7 % (21.0-51.0); %Monocytes 9.1 % (0.0-10.0); %Neutrophils 76.8 % (42.0-75.0); Hemoglobin 10.2 g/dL (14.0-18.0); Mean Corpuscular Hemoglobin 27.4 pg (27.0-31.0); Mean Corpuscular Volume 85.7 fL (78.0-98.0); Mean Platelet Volume 7.3 fL (7.4-10.4); Platelet Count 252 thou/uL (130-400); RBC Distribution Width 16.2 % (11.5-14.5); Red Blood Cell (RBC) Count 3.73 mill/uL (4.70-6.10); White Blood Cell (WBC) Count 13.9 thou/uL (4.8-10.8)
[2021-04-30 12:22] LABS: ALT (SGPT) 36 U/L (8-55); AST (SGOT) 31 U/L (5-34); Albumin 3.7 g/dL (3.4-4.8); Alkaline Phosphatase 116 U/L (40-110); Anion Gap 14 mmol/L (10-20); BUN (Urea Nitrogen) 26 mg/dL (8.4-25.7); Bilirubin, Total 0.9 mg/dL (0.2-1.2); Calc. Creatinine Clearance 0 mL/min (70-130); Carbon Dioxide 24 mmol/L (23-31); Chloride 105 mmol/L (98-107); Globulin 2.6 g/dL (2.4-3.5); Glucose 120 mg/dL (80-115); Potassium 4.3 mmol/L (3.5-5.1); Protein, Total 6.3 g/dL (5.8-8.1); Sodium 139 mmol/L (136-145)
[2021-04-30 13:00] LABS: CKMB 3.6 ng/mL (0-6.6)
[2021-04-30] MEDS ORDERED: Furosemide 20 MG/2 ML VIAL ONE ×2 (14:07)
== END 2021-04-30 15:21 | disposition short-term general hospital (02) ==
LOC: ERS 10:53
DX: I11.0 Hypertensive heart disease with heart failure (principal); I50.9 Heart failure, unspecified; E78.00 Pure hypercholesterolemia, unspecified; Z87.891 Personal history of nicotine dependence; Z79.82 Long term (current) use of aspirin; Z79.899 Other long term (current) drug therapy
CPT/HCPCS: 36415; 71045; 71275; 80053; 82553; 83880; 84484; 85025; 85379; 93005; 96374; J1940; Q9967

== ENCOUNTER 2021-06-08 09:34 | Outpatient (CLI) | payer MEDICARE | END 2021-06-08 09:35 | disposition home or self-care (01) | LOC: BICCT 09:34 | PROVIDERS: ATTEND Registered Nurse | DX: Z12.2 Encounter for screening for malignant neoplasm of respiratory organs (principal); Z87.891 Personal history of nicotine dependence | CPT/HCPCS: 71271 ==

== ENCOUNTER 2021-06-18 19:30 | Outpatient (CLI) | payer MEDICARE | END 2021-06-18 19:31 | disposition home or self-care (01) | LOC: SLEEPLAB 19:30 | PROVIDERS: ATTEND Registered Nurse | DX: G47.33 Obstructive sleep apnea (adult) (pediatric) (principal); I11.0 Hypertensive heart disease with heart failure; I50.9 Heart failure, unspecified; I25.10 Atherosclerotic heart disease of native coronary artery without angina pectoris; J44.9 Chronic obstructive pulmonary disease, unspecified; G47.10 Hypersomnia, unspecified; G47.00 Insomnia, unspecified; Z95.0 Presence of cardiac pacemaker | CPT/HCPCS: 95810 ==

== ENCOUNTER 2021-12-05 12:06 | Outpatient (CLI) | payer MEDICARE | END 2021-12-05 12:07 | disposition home or self-care (01) | LOC: BICCT 12:06 | PROVIDERS: ATTEND Registered Nurse | DX: Z12.2 Encounter for screening for malignant neoplasm of respiratory organs (principal); Z87.891 Personal history of nicotine dependence; J44.9 Chronic obstructive pulmonary disease, unspecified; R91.1 Solitary pulmonary nodule; R91.8 Other nonspecific abnormal finding of lung field | CPT/HCPCS: 71271 ==